=== PATIENT | female | born 1950 | race Caucasian/White ===

== ENCOUNTER → 2016-08-03 | Outpatient (CLI) | payer OTHER ==
[2015-06-30 00:03] VITALS: BP 122/65
[~2016-08-03] MED LIST: AMOX1TAB11 PO; ASPI81TA2 PO; ATOR10TA60 PO; CALC-112 PO; CETI10CA PO; CHOL20004 PO; CITA20TA5 PO; FURO40TA4 PO; IBUP-1060 PO; IPRA4AER; LEVO100T5 PO; LEVO88CA PO; LOSA50TA6 PO; METO-269 PO; METO100T5 PO; MOME13HF IH; MOME13HF2; PNV91TAB3 PO; POT25TAB PO; PRAM0.125 PO; TIZA4TAB PO; TOPI200C PO; TOPI50CA PO; UBID100C12 PO
--- NOTE | 2016-08-03 17:01 | CARD ---
APPROVED REPORT EXAM: Two-dimensional and M-mode echocardiogram with Doppler and color Doppler. Other Information Quality : Good INDICATION Chest Pain 2D DIMENSIONS RVDd2.5 (2.9-3.5cm)Left Atrium(2D)3.5 (1.6-4.0cm) IVSd1.0 (0.7-1.1cm)LVDd5.4 (3.9-5.9cm) LVOT Diameter2.4 (1.8-2.4cm)PWd0.9 (0.7-1.1cm) LVDs4.0 (2.5-4.0cm)FS (%) 26.8 % SV73.2 mlLVEF(%)51.8 (>50%) Aortic Valve AoV Peak Harlan.163.2cm/sAoV VTI32.6cm AO Peak GR.10.6mmHgLVOT Peak Harlan.84.6cm/s LVOT VTI 17.42cmAO Mean GR.6mmHg NORAH (VMAX)2.67si5BWT (VTI)2.47cm2 Mitral Valve MV E Ikjyqaqj73.0cm/sMV DECEL QHGH129hs MV A Ouedoeyo71.7cm/sMV HUW78dw E/A Ratio0.7MVA (PHT)2.86cm2 TDI E/Lateral E'8.6E/Medial E'10.7 Tricuspid Valve TR P. Jeedpzvb066fw/sRAP VFESOCKE4acKt TR Peak Gr.79ocYgFPSE53izPg Pulmonary Vein S1 Xovwnats10.2cm/sD2 Dutifuia71.9cm/s PVa [id number] LEFT VENTRICLE The left ventricle is normal size. There is normal left ventricular wall thickness. Left ventricle sy stolic function is low normal. The Ejection Fraction is 50-55%. There is normal LV segmental wall mot ion. Transmitral Doppler flow pattern is Grade I-abnormal relaxation pattern. RIGHT VENTRICLE The right ventricle is normal size. The right ventricular systolic function is normal. ATRIA The left atrium size is normal. The right atrium size is normal. The interatrial septum is intact wit h no evidence for an atrial septal defect or patent foramen ovale as noted on 2-D or Doppler imaging. AORTIC VALVE The aortic valve is mildly thickened but opens well. Doppler and Color Flow revealed no significant a ortic regurgitation. There is no significant aortic valvular stenosis. MITRAL VALVE The mitral valve is calcified but opens well. There is no evidence of mitral valve prolapse. There is no mitral valve stenosis. Doppler and Color-flow revealed trace mitral regurgitation. TRICUSPID VALVE The tricuspid valve is normal in structure and function. Doppler and Color Flow revealed trace tricus pid regurgitation. There is mild pulmonary hypertension. The PA pressure was estimated at 23 mmHg. Th ere is no tricuspid valve stenosis. PULMONIC VALVE The pulmonary valve is normal in structure and function. Doppler and Color Flow revealed mild pulmoni c valvular regurgitation. There is no pulmonic valvular stenosis. GREAT VESSELS The aortic root is normal in size. The ascending aorta is not well seen. The IVC is normal in size an d collapses >50% with inspiration. PERICARDIAL EFFUSION There is no evidence of significant pericardial effusion. Critical Notification Critical Value: No <Conclusion> Left ventricle systolic function is low normal. The Ejection Fraction is 50-55%. Transmitral Doppler flow pattern is Grade I-abnormal relaxation pattern. Trace mitral regurgitation. Trace tricuspid regurgitation. There is mild pulmonary hypertension. The PA pressure was estimated at 23 mmHg. There is no evidence of significant pericardial effusion.
== END | disposition home or self-care (01) ==
LOC: ECHO 07:57
PROVIDERS: ATTEND Internal Medicine Cardiovascular Disease
DX: R07.9 Chest pain, unspecified (principal); I27.2 Other secondary pulmonary hypertension; I34.0 Nonrheumatic mitral (valve) insufficiency
CPT/HCPCS: 93306

== ENCOUNTER 2017-01-06 02:24 | Observation (INO) | payer OTHER, MEDICARE ==
[~2017-01-06] VITALS: Ht 165.1 cm; Wt 86.6 kg
[~2017-01-06 02:24] MED LIST changes: +ASPI-630 PO; -ASPI81TA2 PO; -CHOL20004 PO; +CHOL200074 PO; -UBID100C12 PO; +UBID100C40 PO
[2017-01-06 02:56] LABS: BASO % 1 % (0-3); EOS % 3 % (0-3); HEMATOCRIT 40.6 % (36.0-47.0); HEMOGLOBIN 13.2 g/dL (12.0-15.5); LYMPH # 2.2 x10^3/uL (1.0-4.8); LYMPH % 24 % (24-48); MEAN CORPUSCULAR HEMOGLOBIN 29 pg (25-35); MEAN CORPUSCULAR HGB CONC 33 g/dL (31-37); MEAN CORPUSCULAR VOLUME 90 fL (79-100); MONO % 9 % (0-9); NEUT % 63 % (31-73); PLATELET COUNT 293 x10^3/uL (140-400); RED CELL DISTRIBUTION WIDTH 13.7 % (11.5-14.5)
[2017-01-06] MEDS ORDERED: IV NORMAL SALINE 1000ML BAG 1,000 ML IV ONE (03:00)
[2017-01-06 03:12] LABS: CALCIUM 8.2 mg/dL (8.5-10.1); CREATININE 0.6 mg/dL (0.6-1.0); GFR 100.6
[2017-01-06] MEDS ORDERED: ONDANSETRON PF 4 MG/2 ML VIAL. IV ONE (03:15)
[2017-01-06 03:18] LABS: ALBUMIN 3.3 g/dL (3.4-5.0); TOTAL BILIRUBIN 0.2 mg/dL (0.2-1.0); TOTAL PROTEIN 6.6 g/dL (6.4-8.2)
[2017-01-06] MEDS ORDERED: MORPHINE SULFATE 2 MG/ML DISP.SYRIN. IV PRN (04:00)
[2017-01-06] MEDS ORDERED: NITROGLYCERIN SUBLINGUAL 0.4 MG BOTTLE OF 25. SL PRN (04:00)
[2017-01-06] MEDS ORDERED: ACETAMINOPHEN 325 MG TABLET. PO PRN (04:00)
[2017-01-06] MEDS ORDERED: ONDANSETRON PF 4 MG/2 ML VIAL. IV PRN ×2 (04:00→08:13)
--- NOTE | 2017-01-06 04:31 | PHYS DOC ---
Past Medical History Past Medical History: Anxiety, COPD, Depression, Diverticulitis, High Cholesterol, Hypertension, [place] Past Surgical History: Hysterectomy, Tonsillectomy, Other Additional Past Surgical Histo: eye surgery, sinus Alcohol Use: None Drug Use: None Adult General Chief Complaint Chief Complaint: CHEST PAIN HPI HPI Patient is a 66 year old female who presents here today complaining of palpitations and feeling like her heart is racing. Patient was complaining of some chest discomfort as well too. Patient reports she has a history of coronary disease, hypertension, COPD, patient denies any history of diabetes or CHF. Patient has any abdominal surgeries. Patient does not smoke drink or do any drugs. Patient is not allergic to any medications. Patient has any fevers shakes chills nausea vomiting or diarrhea. Patient reports no dysuria frequency or urgency. Patient reports she's had a nonproductive cough. Patient reports that she was recently started on antibiotics and is on day 8 of Augmentin. Patient denies any radiating pain. Patient reports that she had some pressure in her chest prior to arrival. Patient's hospital stay she started developing more discomfort in her chest that resolved spontaneously. Patient's physical exam is unremarkable. Patient's heart was regular rate and rhythm. Lungs were clear. Abdomen was benign. Patient's heart rate has remained between 80-90 throughout her stay. Even the patient's heart rate is 80 patient reports that she is able to hear her pulse in her ears very rapidly. Patient reports that the reason she came in today was because her heart was rapid and she feels like it is currently rapidly. Even with the patient reports in the ED that her heart rate is rapid on the monitor it is only running between 80-90. Patient's ER hospital course has been on significant except for the chest pain that she developed what she was here. Patient's EKG revealed normal sinus rhythm with nonspecific ST-T wave abnormalities and no evidence of ST elevation [place]. Patient's labs were all within normal limits. Patient's chest x-ray and not reveal any pneumonia. Assessment and plan: This is a 66-year-old female with history significant for coronary artery disease presents here today secondary to palpitations, rapid heart rate, shortness of breath, chest pressure. Patient will be admitted to the hospital for further cardiac evaluation and monitoring. He anxious. Review of Systems Review of Systems Constitutional: Denies fever or chills [] Eyes: Denies change in visual acuity, redness, or eye pain [] HENT: Denies nasal congestion or sore throat [] All other review systems are negative except as documented in the history of present illness portion. Current Medications Current Medications Current Medications Medications (Trade) Dose Ordered Sig/Mo Start Time Stop Time Status Last Admin Dose Admin Acetaminophen (Tylenol) 650 mg PRN Q4HRS PRN 01/06/17 04:00 01/07/17 03:59 Lorazepam (Ativan) 1 mg 1X ONCE 01/06/17 03:15 01/06/17 03:16 DC 01/06/17 03:15 1 MG Morphine Sulfate 2 mg PRN Q2HR PRN 01/06/17 04:00 01/07/17 03:59 Nitroglycerin (Nitrostat) 0.4 mg PRN Q5MIN PRN 01/06/17 04:00 01/07/17 03:59 Ondansetron HCl (Zofran) 4 mg PRN Q8HRS PRN 01/06/17 04:00 01/07/17 03:59 Sodium Chloride 1,000 ml @ 1,000 mls/hr 1X ONCE 01/06/17 03:00 01/06/17 03:59 DC 01/06/17 03:15 1,000 MLS/HR Allergies Allergies Allergies Coded Allergies Type Severity Reaction Last Updated Verified codeine Allergy Intermediate Nausea 08/23/13 Yes theophylline Allergy Intermediate 08/05/16 Yes cephalexin Adverse Reaction Mild Diarrhea 08/05/16 Yes Physical Exam Physical Exam Constitutional: Well developed, well nourished, no acute distress, non-toxic appearance. [] HENT: Normocephalic, atraumatic, bilateral external ears normal, oropharynx moist, no oral exudates, nose normal. [] Eyes: PERRLA, EOMI, conjunctiva normal, no discharge. [] Neck: Normal range of motion, no tenderness, supple, no stridor. [] Cardiovascular:Heart rate regular rhythm, Lungs & Thorax: Bilateral breath sounds clear to auscultation [] Abdomen: Bowel sounds normal, soft, no tenderness, no masses, no pulsatile masses. [] Skin: Warm, dry, no erythema, no rash. [] Back: No tenderness, no CVA tenderness. [] Extremities: No tenderness, no cyanosis, no clubbing, ROM intact, no edema. [] Neurologic: Alert and oriented X 3, normal motor function, normal sensory function, no focal deficits noted. [] Psychologic: Affect normal, judgement normal, mood normal. [] Current Patient Data Vital Signs Vital Signs Date Time Temp Pulse Resp B/P (MAP) Pulse Ox O2 Delivery O2 Flow Rate FiO2 01/06/17 02:38 98.3 88 24 136/88 (104) 92 Room Air 98.3 Lab Values Laboratory Tests Test 01/06/17 02:35 White Blood Count 9.0 x10^3/uL (4.0-11.0) Red Blood Count 4.50 x10^6/uL (3.50-5.40) Hemoglobin 13.2 g/dL (12.0-15.5) Hematocrit 40.6 % (36.0-47.0) Mean Corpuscular Volume 90 fL (79-100) Mean Corpuscular Hemoglobin 29 pg (25-35) Mean Corpuscular Hemoglobin Concent 33 g/dL (31-37) Red Cell Distribution Width 13.7 % (11.5-14.5) Platelet Count 293 x10^3/uL (140-400) Neutrophils (%) (Auto) 63 % (31-73) Lymphocytes (%) (Auto) 24 % (24-48) Monocytes (%) (Auto) 9 % (0-9) Eosinophils (%) (Auto) 3 % (0-3) Basophils (%) (Auto) 1 % (0-3) Neutrophils # (Auto) 5.7 x10^3uL (1.8-7.7) Lymphocytes # (Auto) 2.2 x10^3/uL (1.0-4.8) Monocytes # (Auto) 0.9 x10^3/uL (0.0-1.1) Eosinophils # (Auto) 0.3 x10^3/uL (0.0-0.7) Basophils # (Auto) 0.0 x10^3/uL (0.0-0.2) Sodium Level 144 mmol/L (136-145) Potassium Level 4.0 mmol/L (3.5-5.1) Chloride Level 105 mmol/L (98-107) Carbon Dioxide Level 34 mmol/L (21-32) H Anion Gap 5 (6-14) L Blood Urea Nitrogen 15 mg/dL (7-20) Creatinine 0.6 mg/dL (0.6-1.0) Estimated GFR (Cockcroft-Gault) 100.6 BUN/Creatinine Ratio 25 (6-20) H Glucose Level 102 mg/dL (70-99) H Calcium Level 8.2 mg/dL (8.5-10.1) L Total Bilirubin 0.2 mg/dL (0.2-1.0) Aspartate Amino Transferase (AST) 14 U/L (15-37) L Alanine Aminotransferase (ALT) 20 U/L (14-59) Alkaline Phosphatase 71 U/L (46-116) Troponin I Quantitative < 0.017 ng/mL (0.000-0.055) Total Protein 6.6 g/dL (6.4-8.2) Albumin 3.3 g/dL (3.4-5.0) L Albumin/Globulin Ratio 1.0 (1.0-1.7) Laboratory Tests 01/06/17 02:35 Laboratory Tests 01/06/17 02:35 EKG EKG [] Radiology/Procedures Radiology/Procedures [] Course & Med Decision Making Course & Med Decision Making Pertinent Labs and Imaging studies reviewed. (See chart for details) [] Dragon Disclaimer Dragon Disclaimer This electronic medical record was generated, in whole or in part, using a voice recognition dictation system. Departure Departure Impression: Primary Impression: Chest pain Additional Impression: Palpitations Disposition: 09 ADMITTED INPATIENT Admitting Physician: Emily Edwards Condition: IMPROVED Referrals: JERROD DAMIAN MD (PCP) Problem Qualifiers JAMIL GARCÍA MD Jan 06, 2017 04:31
--- NOTE | 2017-01-06 05:35 | ACF ---
Admission Forms Criteria CARDIOLOGY GRG Clinical Indications for Admission to Inpatient Care ( Place 'X' for any and all applicable criteria): Hospital admission is needed for appropriate care of the patient because of ANY ONE of the following (1): [ ] I. Hemodynamic instability as indicated by ALL of the following (1)(2)(3) (4)(5) [ ]a) Vital signs or other findings not as expected for chronic patient condition or baseline [ ]b) Instability indicated by ANY ONE of the following: [ ]i) Hypotension [ ]ii) Symptomatic Tachycardia unresponsive to treatment ( e.g., analgesia, fluids, sedation as indicated) [ ]iii) Inadequate perfusion indicated by ANY ONE of the following: [ ] 1) Lactic acidosis (> 2 mmol/L) [ ] 2) New abnormal capillary refill (> 3 seconds) [ ] 3) Reduced urine output [ ] 4) New altered mental status [ ]iv) Orthostatic vital sign changes unresponsive to treatment (e.g., fluids) [ ]v) IV inotropic or vasopressor medication required to maintain adequate blood pressure or perfusion [ ] II. Severe heart failure as indicated by ANY ONE of the following(17)(18) [ ]a) Respiratory distress [ ]b) Hypotension [ ]c) Anasarca (refractory to outpatient therapy) [ ]d) Cardiac arrhythmias of immediate concern [ ]e) Myocardial ischemia [ ] III. Cardiac arrhythmias or findings of immediate concern indicated by ANY ONE of the following (19)(20): [ ] a) Heart rhythms that are inherently dangerous or unstable indicated by ANY ONE of the following (21)(22)(23): [ ] i) Resuscitated ventricular fibrillation or cardiac arrest [ ] ii) Ventricular escape rhythm [ ] iii) Sustained ventricular tachycardia (30 seconds or more of ventricular rhythm at greater than 100 beats per minute) [ ] iv) Nonsustained ventricular tachycardia and ANY ONE of the following: [ ] 1) Suspected cardiac ischemia as cause or consequence of ventricular tachycardia [ ] 2) In setting of acute myocarditis [ ] b) Unstable cardiac conduction defects indicated by ANY ONE of the following(23)(24)(25) [ ] i) Type II second-degree atrioventricular block [ ]ii) Third-degree atrioventricular block [ ]iii) New-onset left bundle branch block with suspected myocardial ischemia [ ]c) Any heart rhythm and ANY ONE of the following (21)(22)(26)(27) (28) [ ] i) Continuous long-term ECG monitoring needed (e.g., initiation of drug requiring monitoring for more than 24 hours) [ ] ii) Patient has automatic implanted cardioverter defibrillator that is repeatedly firing, malfunctioning, or in need of immediate adjustment of settings beyond the scope of ambulatory or observation care [ ]d) Heart rhythms of concern due to ANY ONE of the following: [ ] i) Hypotension [ ] ii) Respiratory distress [ ] iii) Association with other significant symptoms (e.g., bradycardia with syncope or ongoing dizziness, supraventricular tachycardia with chest pain (14)(15)(17) [ ] IV. Monitoring for cardiac contusion beyond the scope of observation care needed [A](30)(31)(32) [ ] V. Surgical or device complication (e.g., valve replacement complication , pacemaker dysfunction) (35)(41)(44)(45)(46) [ ] . Inpatient palliative care needed. [B](49) Also use Inpatient Palliative Care Criteria [ ] VII. Nonbacterial thrombotic (marantic) endocarditis (36)(43)(47)(48) [X] VIII. Cardiology condition, symptom, or finding for which emergency and observation care has failed or are not considered appropriate. [ ] IX. Acute valvular disease requiring inpatient as indicated by ANY ONE of the following (41) [ ]a) Acute valvular regurgitation (42) [ ]b) Noninfectious valvulitis (43) [ ]c) Obstructive valve thrombosis [ ]d) Paravalvular leak [ ]e) Other significant valvular disorder remaining after emergency or observation level of care (as appropriate) [ ]X. Pericardial disease requiring inpatient treatment as indicated by ANY ONE of the following (33)(34)(35)(36)(37) [ ]a) Suspected tamponade (38)(39)(40) [ ]b) Hemopericardium [ ]c) Other significant pericardial disorder remaining after emergency or observation level of care (as appropriate) [ ] XI. Cardiac ischemia beyond scope of emergency and observation care. [ ] XII. Hypertension requiring inpatient treatment as indicated by ANY ONE of the following (6)(7)(8) [ ]a) SBP greater than 220 mm Hg or DBP greater than 120 mmHg despite treatment [ ]b) SBP greater than 140 mm Hg or DBP greater than 100 mm Hg with evidence of acute end organ damage as indicated by ANY ONE of the following [ ] i) Encephalopathy [ ] ii) Acute renal failure as indicated by new onset of ANY ONE of the following (9)(10)(11)(12)(13) [ ]1) 3-fold rise in serum creatinine from baseline [ ]2) Serum creatinine greater than 4 mg/dL ( 354 micromoles/L) with acute rise greater than 0.5 mg/dL (44.2 micromoles/L) [ ]3) Reduction of more than 75% in estimated glomerular filtration rate from baseline [ ]4) Estimated glomerular filtration rate less than 35 mL/min/1.73m2 (0.59 mL/sec/1.73m2) in child up to 18 years of age [ ]5) Cessation of urine output indicated by ALL of the following [ ]A. Adequate volume status [ ]B. Inadequate urine output as indicated by ANY ONE of the following [ ]a. Urine output less than 0.3 mL/kg/hr for 24 hours [ ]b. Anuria (urine output less than 0.1 mL/kg/hr) for 12 hours [ ] iii) Aortic dissection [ ] iv) Myocardial Ischemia [ ] v) Left ventricular heart failure [ ]vi) Retinal Hemorrhage [ ]vii) Other significant finding [ ]c) Hypertension in child requiring inpatient treatment as indicated by ALL of the following(14)(15)(16) [ ] i) Outpatient treatment not effective, not available, or not appropriate [ ]ii) SBP or DBP greater than 95th percentile for age [ ]iii) Evidence of acute end organ damage as indicated by ANY ONE of the following [ ]1) Altered mental status [ ]2) Acute renal failure as indicated by new onset of ANY ONE of the following(9)(10)(11)(12)(13) [ ]A. 3-fold rise in serum creatinine from baseline [ ]B. Serum creatinine greater than 4 mg/dL (354 micromoles/L) with acute rise greater than 0.5 mg/dL (44.2 micromoles/L) [ ]C. Reduction of more than 75% in estimated glomerular filtration rate from baseline [ ]D. Estimated glomerular filtration rate less than 35 mL/min/1.73m2 (0.59 mL/sec/1.73m2) in child up to 18 years of age [ ]E. Cessation of urine output indicated by ALL of the following [ ]a. Adequate volume status [ ]b. Inadequate urine output as indicated by ANY ONE of the following [ ]i) Urine output less than 0.3 mL/kg/hr for 24 hours [ ]ii) Anuria ( urine output less than 0.1 mL/kg/hr) for 12 hours [ ]3) Severe headache [ ]4) Visual disturbance [ ]5) Retinal hemorrhage [ ]6) Other significant finding [ ]XIII. Complications of transplanted heart indicated by ANY ONE of the following(61): [ ]a) Acute graft rejection requiring inpatient management (eg, intravenous immunosuppression)(62)(63) [ ]b) Acute graft heart failure indicated by ANY ONE of the following(64): [ ]i) Hemodynamic instability [ ]ii) Cardiac arrhythmias of immediate concern [ ]iii) Pulmonary edema that is very severe (eg, mechanical ventilation needed, imminent or likely, need for 100% oxygen to keep oxygen saturation above 90%) [ ]iv) Pulmonary edema that is persistent as indicated by ALL of the following: [ ]1) New need for oxygen therapy to keep oxygen saturation above 90% (or increased FiO2 need from baseline) [ ]2) Has not improved sufficiently with emergency department or observation care IV diuretics or other heart failure treatments[E] [ ]v) Altered mental status that is severe or persistent [ ]vi) Increased creatinine (new on laboratory test) with reduction of more than 50% in estimated glomerular filtration rate from baseline [ ]vii) Progressively (ongoing) rising creatinine (known from past laboratory test) with reduction of more than 25% in estimated glomerular filtration rate from baseline [ ]viii) Acute renal failure [ ]ix) Acute peripheral ischemia (eg, examination shows pulseless, cool, mottled, or cyanotic extremity) [ ]x) Pulmonary artery catheter monitoring needed [ ]xi) Other sign or symptom of heart failure requiring inpatient treatment (ie, too severe or not responsive to outpatient and observation care treatment) [ ]c) Infection requiring inpatient management (eg, Hemodynamic instability, need for intravenous antimicrobial treatment)(66)(67)(68)(69)(70) [ ]d) Cardiac allograft vasculopathy requiring inpatient management ( eg evidence of cardiac ischemia)(71) [ ]e) Other complication of transplanted heart (eg, stroke, severe pulmonary hypertension, severe valvular dysfunction) requiring inpatient management(72) The original [facility] content created by [facility] has been revised. The portions of the content which have been revised are identified through the use of italic text or in bold, and [facility] has neither reviewed nor approved the modified material. All other unmodified content is copyright [facility]. Please see references footnoted in the original [facility] edition 2016 Admission Criteria Met?: Yes DIA BASHIR Jan 06, 2017 05:34
--- NOTE | 2017-01-06 07:15 | RAD ---
Portable chest, 01/06/2017: History: Chest pain Comparison is made to a study from 11/19/2014. The left hemidiaphragm is elevated. The heart is mildly enlarged. The pulmonary vascularity is normal. No pulmonary infiltrates are seen. There is no evidence of pleural fluid. IMPRESSION: 1. Chronic elevation of the left hemidiaphragm. 2. Mild cardiomegaly. 3. No acute abnormality is detected.
[2017-01-06 07:38] VITALS: BP 133/62
[2017-01-06] MEDS ORDERED: tiZANidine 4 MG TABLET. PO PRN (08:15)
[2017-01-06] MEDS ORDERED: IBUPROFEN 800 MG TABLET. PO PRN (08:30)
[2017-01-06] MEDS: IPRATRPIUM/ALBUTEROL 0.5/2.5MG 3 ML NEBU. NEB SCH ×3 (08:33→15:20)
[2017-01-06] MEDS ORDERED: FUROSEMIDE 40 MG TABLET. PO SCH (09:00)
[2017-01-06] MEDS ORDERED: POTASSIUM CHLORIDE 20 MEQ TABLET.ER. PO SCH (09:00)
[2017-01-06] MEDS ORDERED: LOSARTAN POTASSIUM 50 MG TABLET. PO SCH (09:00)
[2017-01-06] MEDS ORDERED: METOPROLOL SUCC 24HR ER 100 MG TAB.ER.24H. PO SCH (09:00)
[2017-01-06] MEDS: PRAMIPEXOLE 0.25 MG TABLET. PO SCH ×2 (09:00→11:23)
[2017-01-06] MEDS ORDERED: BUDESONIDE 0.5 MG/2 ML NEBU. NEB SCH (09:00)
[2017-01-06] MEDS ORDERED: CHOLECALCIFEROL (VITAMIN D3) 1,000 UNIT TABLET PO SCH (09:00)
[2017-01-06] MEDS ORDERED: ASPIRIN CHEWABLE 81 MG TABLET. PO SCH (09:00)
[2017-01-06] MEDS ORDERED: UBIDECARENONE PO SCH (09:00)
[2017-01-06] MEDS ORDERED: TOPIRAMATE 200 MG PO SCH (09:00)
[2017-01-06] MEDS ORDERED: CETIRIZINE HCL 10 MG TABLET. PO SCH (09:00)
[2017-01-06] MEDS ORDERED: LEVOTHYROXINE 100 MCG TABLET PO SCH (09:00)
--- NOTE | 2017-01-06 09:55 | PDOC2 ---
CARDIAC CONSULT DATE OF CONSULT Date of Consult DATE: 01/06/17 TIME: 09:32 REASON FOR CONSULT Reason for Consult: Chest pain REFERRING PHYSICIAN Referring Physician: Wilder SOURCE Source: Chart review, Patient HISTORY OF PRESENT ILLNESS HISTORY OF PRESENT ILLNESS This is a pleasant 66 yo female admitted for complains of palpitations. Reports of left chest pain on Wednesday followed by stomach ache and nausea. No SOA but uses O2 at 2.5 LPM at hs for her COPD. A week ago he developed symptoms of URI in which she was given medrol dose pack. She took this and Wednesday. Also she was recommended for some antibiotics and her having left over augmentin she started taking this and took it for 6 days total with her last dose Wednesday. Wednesday night in addition to her symptoms mentioned she started having sensation of heart racing and developed diarrhea. This was watery continued on 5 episodes through Wednesday. No further recurrence of CP. Wednesday no further GI symptoms and remains to have sensation of palpitations and slight nausea. She does admit anxiety in which she was prescribed lexapro last but never got started due to her symptoms. She does take levothyroxine but has not taken it since Wednesday but continued on to take her cardiac meds including toprol. This sensation of palpitations happened again last night but the tele monitor did not show any tachyarrhythmias. She has been having insomnia as well since her steroid started She also has been exercising without difficulty with treadmill and rehab prior to her URI. No excessive caffeinated na use. PAST MEDICAL HISTORY Cardiovascular: CAD, HTN, Hyperlipidemia, Other (tachycardia in the past, unknown type; NICM) Pulmonary: COPD CENTRAL NERVOUS SYSTEM: Other (No pertinent history) Heme/Onc: No pertinent hx Hepatobiliary: No pertinent hx Psych: Anxiety Musculoskeletal: low back pain, Osteoarthritis Rheumatologic: No pertinent hx Infectious disease: No pertinent hx ENT: Sincusitis, Allergic Rhinitis Renal/: No pertinent hx Endocrine: Hypothyroidism Dermatology: No pertinent hx PAST SURGICAL HISTORY Past Surgical History: Tonsillectomy, Hysterectomy FAMILY HISTORY Family History: Diabetes SOCIAL HISTORY Smoke: No (90 pk yr quit 16 yrs ago) ALCOHOL: none Drugs: None Lives: with Family CURRENT MEDICATIONS CURRENT MEDICATIONS Current Medications Medications (Trade) Dose Ordered Sig/Mo Route PRN Reason Start Time Stop Time Status Last Admin Dose Admin Sodium Chloride 1,000 ml @ 1,000 mls/hr 1X ONCE IV 01/06/17 03:00 01/06/17 03:59 DC 01/06/17 03:15 Ondansetron HCl (Zofran) 4 mg 1X ONCE IV 01/06/17 03:15 01/06/17 03:16 DC 01/06/17 03:15 Lorazepam (Ativan) 1 mg 1X ONCE IV 01/06/17 03:15 01/06/17 03:16 DC 01/06/17 03:15 Budesonide (Pulmicort) 0.5 mg RTBID NEB 01/06/17 09:00 01/06/17 08:34 Albuterol/ Ipratropium (Duoneb) 3 ml RTQID [facility] 01/06/17 09:00 01/06/17 08:33 ALLERGIES ALLERGIES: Coded Allergies: codeine (Verified Allergy, Intermediate, Nausea, 08/23/13) theophylline (Verified Allergy, Intermediate, 08/05/16) cephalexin (Verified Adverse Reaction, Mild, Diarrhea, 08/05/16) ROS Review of System 14 point ROS evaluated with pertinent positives noted per HPI PHYSICAL EXAM General: Alert, Oriented X3, Cooperative, No acute distress HEENT: Atraumatic, Mucous membr. moist/pink Lungs: Clear to auscultation Heart: Regular rate (SR), Normal S1, Normal S2, No murmurs Abdomen: Soft, No tenderness Extremities: No cyanosis, No edema Skin: No breakdown, No significant lesion Neuro: Normal speech, Sensation intact Psych/Mental Status: Mental status NL, Other (anxious) MUSCULOSKELETAL: Osteoarthritic changes both hands VITALS VITALS Vital Signs Date Time Temp Pulse Resp B/P (MAP) Pulse Ox O2 Delivery O2 Flow Rate FiO2 01/06/17 08:34 99 Nasal Cannula 2.0 01/06/17 06:30 86 153/74 (100) 01/06/17 05:00 18 01/06/17 02:38 98.3 98.3 LABS Lab: Laboratory Tests Test 01/06/17 02:35 White Blood Count 9.0 x10^3/uL (4.0-11.0) Red Blood Count 4.50 x10^6/uL (3.50-5.40) Hemoglobin 13.2 g/dL (12.0-15.5) Hematocrit 40.6 % (36.0-47.0) Mean Corpuscular Volume 90 fL (79-100) Mean Corpuscular Hemoglobin 29 pg (25-35) Mean Corpuscular Hemoglobin Concent 33 g/dL (31-37) Red Cell Distribution Width 13.7 % (11.5-14.5) Platelet Count 293 x10^3/uL (140-400) Neutrophils (%) (Auto) 63 % (31-73) Lymphocytes (%) (Auto) 24 % (24-48) Monocytes (%) (Auto) 9 % (0-9) Eosinophils (%) (Auto) 3 % (0-3) Basophils (%) (Auto) 1 % (0-3) Neutrophils # (Auto) 5.7 x10^3uL (1.8-7.7) Lymphocytes # (Auto) 2.2 x10^3/uL (1.0-4.8) Monocytes # (Auto) 0.9 x10^3/uL (0.0-1.1) Eosinophils # (Auto) 0.3 x10^3/uL (0.0-0.7) Basophils # (Auto) 0.0 x10^3/uL (0.0-0.2) Sodium Level 144 mmol/L (136-145) Potassium Level 4.0 mmol/L (3.5-5.1) Chloride Level 105 mmol/L (98-107) Carbon Dioxide Level 34 mmol/L (21-32) Anion Gap 5 (6-14) Blood Urea Nitrogen 15 mg/dL (7-20) Creatinine 0.6 mg/dL (0.6-1.0) Estimated GFR (Cockcroft-Gault) 100.6 BUN/Creatinine Ratio 25 (6-20) Glucose Level 102 mg/dL (70-99) Calcium Level 8.2 mg/dL (8.5-10.1) Total Bilirubin 0.2 mg/dL (0.2-1.0) Aspartate Amino Transf (AST/SGOT) 14 U/L (15-37) Alanine Aminotransferase (ALT/SGPT) 20 U/L (14-59) Alkaline Phosphatase 71 U/L (46-116) Troponin I Quantitative < 0.017 ng/mL (0.000-0.055) Total Protein 6.6 g/dL (6.4-8.2) Albumin 3.3 g/dL (3.4-5.0) Albumin/Globulin Ratio 1.0 (1.0-1.7) ECHOCARDIOGRAM ECHOCARDIOGRAM <Conclusion> Left ventricle systolic function is low normal. The Ejection Fraction is 50-55%. Transmitral Doppler flow pattern is Grade I-abnormal relaxation pattern. Trace mitral regurgitation. Trace tricuspid regurgitation. There is mild pulmonary hypertension. The PA pressure was estimated at 23 mmHg. There is no evidence of significant pericardial effusion. DATE: 08/03/16 1700 STRESS TEST STRESS TEST Conclusion 1. No EKG evidence of stress induced ischemia. 2. Nuclear imaging shows an infarct in the apical lateral region and no significant reversible ischemia. 3. LV systolic moderately decreased with an EF of 36%. 4. Moderately low risk nuclear stress test. DATE: 07/06/16 1343 HEART CATH HEART CATH Findings. Hemodynamics. LV 132/18, aortic root 140/68. Coronaries. Left main. The left main was a short vessel with no lesions. Left anterior descending. The LAD was a moderately small vessel. It had no lesions. Left circumflex. The left circumflex had a proximal 15% lesion. Right coronary artery. The right coronary was a dominant vessel. It had a mid 25 % lesion. Left ventriculogram. The left ventricle showed normal left ventricular systolic function with an ejection fraction of 55%. <Conclusion> Mild coronary artery disease with no lesions greater than 25%. Normal left ventricular systolic function. DATE: 08/05/16 1426 ASSESSMENT/PLAN ASSESSMENT/PLAN 1. Atypical chest pain: No ACS. likely anxiety. Lone episode of brief CP Wednesday 2. Palpitations: mainly her complaint. Likely from anxiety particularly the addition of steroids. 3. Anxiety: has not started her new prescription escitalopram but was on prozac before 4. Hx of some form of tachycardia?: unknown per pt. 5. Hx of mild CAD: 25% to mid RCA per C. 6. NICM: much improved with EF at 50-55% Recommendations 1. Ischemic w/u very recent as noted above. Will consider for outpt event monitor. 2. Continue home cardiac regimen 3. SSRI per PCP. 4. Check TSH 5. If no significant rhythm changes then may DC this afternoon per cardiac standpoint. 6. Will obtain EKG copy. Problems: BRITANY BHATIA APRN Jan 06, 2017 09:55
[2017-01-06 10:54] VITALS: BP 101/57
[2017-01-06 11:37] LABS: FREE T4 0.92 ng/dL (0.76-1.46)
--- NOTE | 2017-01-06 12:48 | PDOC1 ---
History and Physical Date of Admission Date of Admission DATE: 01/06/17 TIME: 12:37 Identification/Chief Complaint Chief Complaint palpitations Problems: Source Source: Caregiver, Chart review, Patient History of Present Illness History of Present Illness Pleasant 66 y.o female, admitted for palpitations she can hear on R side of her head. HR 100 bpm at rest, no BOV, headaches, ringing of ears. New onset, no other sxs. On metoprolol 100 ER qD. also on synthroid, PCP dr. Soares, has been on that dose for long time,. Claims compliance. CArds has seen, no further work up,. BUt HR remains at 100 bpm with sxs still persistent. No excessive caffeinated na use. Past Medical History Cardiovascular: CAD, HTN, Hyperlipidemia, Other (tachycardia in the past, unknown type; NICM) Pulmonary: COPD CENTRAL NERVOUS SYSTEM: Other (No pertinent history) Heme/Onc: No pertinent hx Hepatobiliary: No pertinent hx Psych: Anxiety Musculoskeletal: low back pain, Osteoarthritis Rheumatologic: No pertinent hx Infectious disease: No pertinent hx ENT: Sincusitis, Allergic Rhinitis Renal/: No pertinent hx Endocrine: Hypothyroidism Dermatology: No pertinent hx Past Surgical History Past Surgical History: Tonsillectomy, Hysterectomy Family History Family History: Diabetes Social History Smoke: No (90 pk yr quit 16 yrs ago) ALCOHOL: none Drugs: None Current Problem List Problem List Problems Medical Problems: (1) Chest pain Status: Acute (2) Palpitations Status: Acute Problems: Current Medications Current Medications Current Medications Sodium Chloride 1,000 ml @ 1,000 mls/hr 1X ONCE IV Last administered on 03:15; Start 01/06/17 at 03:00; Stop 01/06/17 at 03:59; Status DC Ondansetron HCl (Zofran) 4 mg 1X ONCE IV Last administered on 01/06/17 03:15 ; Start 01/06/17 at 03:15; Stop 01/06/17 at 03:16; Status DC Lorazepam (Ativan) 1 mg 1X ONCE IV Last administered on 01/06/17 03:15; Start 01/06/17 at 03:15; Stop 01/06/17 at 03:16; Status DC Ondansetron HCl (Zofran) 4 mg PRN Q8HRS PRN IV NAUSEA/VOMITING; Start 01/06/17 at 04:00; Stop 01/06/17 at 08:15; Status DC Morphine Sulfate 2 mg PRN Q2HR PRN IV PAIN; Start 01/06/17 at 04:00; Stop 01/07 at 03:59 Acetaminophen (Tylenol) 650 mg PRN Q4HRS PRN PO FEVER; Start 01/06/17 at 04:00 ; Stop 01/07/17 at 03:59 Nitroglycerin (Nitrostat) 0.4 mg PRN Q5MIN PRN SL CHEST PAIN; Start 01/06/17 at 04:00; Stop 01/07/17 at 03:59 Ondansetron HCl (Zofran) 4 mg PRN Q6HRS PRN IV NAUSEA/VOMITING; Start 01/06/17 at 08:13; Stop 01/07/17 at 08:12 Aspirin (Children'S Aspirin) 81 mg DAILY PO Last administered on 01/06/17 11: 23; Start 01/06/17 at 09:00 Atorvastatin Calcium (Lipitor) 10 mg QHS PO ; Start 01/06/17 at 21:00 Furosemide (Lasix) 40 mg DAILY PO Last administered on 01/06/17 11:24; Start 01/06/17 at 09:00 Levothyroxine Sodium (Synthroid) 100 mcg DAILY06 PO Last administered on 11:23; Start 01/06/17 at 09:00; Stop 01/06/17 at 12:31; Status DC Losartan Potassium (Cozaar) 50 mg DAILY PO Last administered on 01/06/17 11:23 ; Start 01/06/17 at 09:00 Metoprolol Succinate (Toprol Xl) 100 mg DAILY PO Last administered on 11:24; Start 01/06/17 at 09:00 Tizanidine HCl (Zanaflex) 4 mg PRN QID PRN PO MUSCLE SPASMS; Start 01/06/17 at 08:15 Cetirizine HCl (ZyrTEC) 10 mg DAILY PO Last administered on 01/06/17 11:23; Start 01/06/17 at 09:00 Vitamin D (Vitamin D3) 2,000 unit DAILY PO Last administered on 01/06/17 11:24 ; Start 01/06/17 at 09:00 Ibuprofen (Motrin) 800 mg PRN Q6HRS PRN PO INFLAMMATION; Start 01/06/17 at 08: 30 Budesonide (Pulmicort) 0.5 mg RTBID NEB Last administered on 01/06/17 08:34; Start 01/06/17 at 09:00 Potassium Chloride (Klor-Con) 20 meq DAILYWBKFT PO Last administered on 11:24; Start 01/06/17 at 09:00 Pramipexole Dihydrochloride (miraPEX) 0.125 mg DAILY PO ; Start 01/06/17 at 09: 00 Non-Formulary Medication 200 mg DAILY PO ; Start 01/06/17 at 09:00; Status UNV Non-Formulary Medication 1 tab DAILY PO ; Start 01/06/17 at 09:00; Status UNV Albuterol/ Ipratropium (Duoneb) 3 ml RTQID NEB Last administered on 01/06/17 11:19; Start 01/06/17 at 09:00 Multivit/ Folic Acid/Iron (Multivitamin ) 1 tab DAILY PO ; Start 01/07/17 at 09:00 Levothyroxine Sodium (Synthroid) 125 mcg DAILY07 PO ; Start 01/07/17 at 07:00 Active Scripts Active Reported Tizanidine Hcl 4 Mg Tablet 4 Mg PO QID PRN Levothyroxine Sodium 100 Mcg Tablet 1 Tab PO DAILY Ibuprofen 800 Mg Tablet 800 Mg PO PRN Q6HRS PRN Caplet (Pnv95/Ferrous Fumarate/FA) 1 Each Tablet 1 Each PO DAILY Atorvastatin Calcium 10 Mg Tablet 1 Tab PO DAILY Vitamin D-3 (Cholecalciferol (Vitamin D3)) 2,000 Unit Capsule 2,000 Unit PO DAILY Toprol Xl (Metoprolol Succinate) 100 Mg Tab.er.24h 1 Tab PO DAILY Dulera 200 Mcg/5 Mcg Inhaler (Mometasone/Formoterol) 13 Gm Hfa.aer.ad 2 Puff IH BID Combivent Respimat Inhal (Ipratropium/Albuterol Sulfate) 4 Gm Aer.w.adap Furosemide 40 Mg Tablet 1 Tab PO DAILY Co Q-10 (Ubidecarenone) 100 Mg Capsule 1 Tab PO DAILY Aspirin 81 Mg Tab.chew 1 Tab PO DAILY Potassium Cl 25 Meq Tab Eff (Pot Chloride/Pot Bicarb/Cit Ac) 25 Meq Tablet.eff 1 Tab PO DAILY Losartan Potassium 50 Mg Tablet 1 Tab PO DAILY Mirapex (Pramipexole Di-Hcl) 0.125 Mg Tablet 1 Tab PO DAILY Zyrtec (Cetirizine Hcl) 10 Mg Capsule 1 Tab PO DAILY Allergies Allergies: Coded Allergies: codeine (Verified Allergy, Intermediate, Nausea, 08/23/13) theophylline (Verified Allergy, Intermediate, 08/05/16) cephalexin (Verified Adverse Reaction, Mild, Diarrhea, 08/05/16) ROS General: YES: Malaise, Other (weak) PSYCHOLOGICAL ROS: No: Anxiety, Behavioral Disorder, Concentration difficultie , Decreased libido, Depression, Disorientation, Hallucinations, Hostility, Irritablity, Memory difficulties, Mood Swings, Obsessive thoughts, Physical abuse, Sexual abuse, Sleep disturbances, Suicidal ideation, Other Eyes: No Blurry vision, No Decreased vision, No Double vision, No Dry eyes, No Excessive tearing, No Eye Pain, No Itchy Eyes, No Loss of vision, No Photophobia , No Scotomata, No Uses contacts, No Uses glasses, No Other HEENT: YES: Other (hearing palpitations) ALLERGY AND IMMUNOLOGY: No: Hives, Insect Bite Sensitivity, Itchy/Watery Eyes, Nasal Congestion, Post Nasal Drip, Seasonal Allergies, Other Hematological and Lymphatic: No: Bleeding Problems, Blood Clots, Blood Transfusions, Brusing, Night Sweats, Pallor, Swollen Lymph Nodes, Other ENDOCRINE: No: Breast Changes, Galactorrhea, Hair Pattern Changes, Hot Flashes , Malaise/lethargy, Mood Swings, Palpitations, Polydipsia/polyuria, Skin Changes , Temperature Intolerance, Unexpected Weight Changes, Other Breast: No New/Changing Breast Lumps, No Nipple changes, No Nipple discharge, No Other Respiratory: No: Cough, Hemoptysis, Orthopnea, Pleuritic Pain, Shortness of breath, SOB with excertion, Sputum Changes, Stridor, Tachypnea, Wheezing, Other Cardiovascular: yes Palpitations Gastrointestinal: No Nausea, No Vomiting, No Abdominal Pain, No Diarrhea, No Constipation, No Melena, No Hematochezia, No Other Genitourinary: No Dysuria, No Frequency, No Incontinence, No Hematuria, No Retention, No Discharge, No Urgency, No Pain, No Flank Pain, No Other, No , No , No , No , No , No , No Musculoskeletal: No Gait Disturbance, No Joint Pain, No Joint Stiffness, No Joint Swelling, No Muscle Pain, No Muscular Weakness, No Pain In:, No Swelling In:, No Other Neurological: No Behavorial Changes, No Bowel/Bladder ControlChng, No Confusion , No Dizziness, No Gait Disturbance, No Headaches, No Impaired Coord/balance, No Memory Loss, No Numbness/Tingling, No Seizures, No Speech Problems, No Tremors, No Visual Changes, No Weakness, No Other Skin: No Dry Skin, No Eczema, No Hair Changes, No Lumps, No Mole Changes, No Mottling, No Nail Changes, No Pruritus, No Rash, No Skin Lesion Changes, No Other, No Acne Physical Exam General: Alert, Oriented X3, Cooperative, No acute distress HEENT: Atraumatic, PERRLA, EOMI Lungs: Clear to auscultation, Normal air movement Heart: S1S2, RRR, no thrills, no rubs, no gallops, no murmurs Cardiovascular: S1, S2 Breasts: Normal, Rt breast nml w/o mass, Lt breast nml w/o mass, Nipples normal Abdomen: Normal bowel sounds, Soft, No tenderness, No hepatosplenomegaly, No masses Rectal Exam: not examined Extremities: No clubbing, No cyanosis, No edema, Normal pulses, No tenderness/ swelling Skin: No rashes, No breakdown, No significant lesion Neuro: Normal gait, Normal speech, Strength at 5/5 X4 ext, Normal tone, Sensation intact, Cranial nerves 3-12 NL, Reflexes 2+ Psych/Mental Status: Mental status NL, Mood NL Vitals Vitals Vital Signs Date Time Temp Pulse Resp B/P (MAP) Pulse Ox O2 Delivery O2 Flow Rate FiO2 01/06/17 11:24 98 101/57 01/06/17 11:19 Nasal Cannula 2.0 01/06/17 10:54 97.7 20 96 97.7 Labs Labs Laboratory Tests Test 01/06/17 02:35 01/06/17 10:10 White Blood Count 9.0 x10^3/uL (4.0-11.0) Red Blood Count 4.50 x10^6/uL (3.50-5.40) Hemoglobin 13.2 g/dL (12.0-15.5) Hematocrit 40.6 % (36.0-47.0) Mean Corpuscular Volume 90 fL (79-100) Mean Corpuscular Hemoglobin 29 pg (25-35) Mean Corpuscular Hemoglobin Concent 33 g/dL (31-37) Red Cell Distribution Width 13.7 % (11.5-14.5) Platelet Count 293 x10^3/uL (140-400) Neutrophils (%) (Auto) 63 % (31-73) Lymphocytes (%) (Auto) 24 % (24-48) Monocytes (%) (Auto) 9 % (0-9) Eosinophils (%) (Auto) 3 % (0-3) Basophils (%) (Auto) 1 % (0-3) Neutrophils # (Auto) 5.7 x10^3uL (1.8-7.7) Lymphocytes # (Auto) 2.2 x10^3/uL (1.0-4.8) Monocytes # (Auto) 0.9 x10^3/uL (0.0-1.1) Eosinophils # (Auto) 0.3 x10^3/uL (0.0-0.7) Basophils # (Auto) 0.0 x10^3/uL (0.0-0.2) Sodium Level 144 mmol/L (136-145) Potassium Level 4.0 mmol/L (3.5-5.1) Chloride Level 105 mmol/L (98-107) Carbon Dioxide Level 34 mmol/L (21-32) Anion Gap 5 (6-14) Blood Urea Nitrogen 15 mg/dL (7-20) Creatinine 0.6 mg/dL (0.6-1.0) Estimated GFR (Cockcroft-Gault) 100.6 BUN/Creatinine Ratio 25 (6-20) Glucose Level 102 mg/dL (70-99) Calcium Level 8.2 mg/dL (8.5-10.1) Total Bilirubin 0.2 mg/dL (0.2-1.0) Aspartate Amino Transf (AST/SGOT) 14 U/L (15-37) Alanine Aminotransferase (ALT/SGPT) 20 U/L (14-59) Alkaline Phosphatase 71 U/L (46-116) Troponin I Quantitative < 0.017 ng/mL (0.000-0.055) < 0.017 ng/mL (0.000-0.055) Total Protein 6.6 g/dL (6.4-8.2) Albumin 3.3 g/dL (3.4-5.0) Albumin/Globulin Ratio 1.0 (1.0-1.7) Thyroid Stimulating Hormone (TSH) 3.992 uIU/mL (0.358-3.74) Free Thyroxine 0.92 ng/dL (0.76-1.46) Free Triiodothyronine (T3) pg/mL 1.70 pg/mL (2.18-3.98) Laboratory Tests Test 01/06/17 02:35 01/06/17 10:10 White Blood Count 9.0 x10^3/uL (4.0-11.0) Red Blood Count 4.50 x10^6/uL (3.50-5.40) Hemoglobin 13.2 g/dL (12.0-15.5) Hematocrit 40.6 % (36.0-47.0) Mean Corpuscular Volume 90 fL (79-100) Mean Corpuscular Hemoglobin 29 pg (25-35) Mean Corpuscular Hemoglobin Concent 33 g/dL (31-37) Red Cell Distribution Width 13.7 % (11.5-14.5) Platelet Count 293 x10^3/uL (140-400) Neutrophils (%) (Auto) 63 % (31-73) Lymphocytes (%) (Auto) 24 % (24-48) Monocytes (%) (Auto) 9 % (0-9) Eosinophils (%) (Auto) 3 % (0-3) Basophils (%) (Auto) 1 % (0-3) Neutrophils # (Auto) 5.7 x10^3uL (1.8-7.7) Lymphocytes # (Auto) 2.2 x10^3/uL (1.0-4.8) Monocytes # (Auto) 0.9 x10^3/uL (0.0-1.1) Eosinophils # (Auto) 0.3 x10^3/uL (0.0-0.7) Basophils # (Auto) 0.0 x10^3/uL (0.0-0.2) Sodium Level 144 mmol/L (136-145) Potassium Level 4.0 mmol/L (3.5-5.1) Chloride Level 105 mmol/L (98-107) Carbon Dioxide Level 34 mmol/L (21-32) Anion Gap 5 (6-14) Blood Urea Nitrogen 15 mg/dL (7-20) Creatinine 0.6 mg/dL (0.6-1.0) Estimated GFR (Cockcroft-Gault) 100.6 BUN/Creatinine Ratio 25 (6-20) Glucose Level 102 mg/dL (70-99) Calcium Level 8.2 mg/dL (8.5-10.1) Total Bilirubin 0.2 mg/dL (0.2-1.0) Aspartate Amino Transf (AST/SGOT) 14 U/L (15-37) Alanine Aminotransferase (ALT/SGPT) 20 U/L (14-59) Alkaline Phosphatase 71 U/L (46-116) Troponin I Quantitative < 0.017 ng/mL (0.000-0.055) < 0.017 ng/mL (0.000-0.055) Total Protein 6.6 g/dL (6.4-8.2) Albumin 3.3 g/dL (3.4-5.0) Albumin/Globulin Ratio 1.0 (1.0-1.7) Thyroid Stimulating Hormone (TSH) 3.992 uIU/mL (0.358-3.74) Free Thyroxine 0.92 ng/dL (0.76-1.46) Free Triiodothyronine (T3) pg/mL 1.70 pg/mL (2.18-3.98) VTE Prophylaxis Ordered VTE Prophylaxis Devices: Yes VTE Pharmacological Prophylaxi: Yes Assessment/Plan Assessment/Plan 1. PAlpitations 2. Hypothyrodism, TSH not at goal 3. Obesity, fibromyalgia, HTN - all chronci stable PLAN: I did order TSH and T3 T4 earlier today, TSH high and T4 slightly low Adjust dose inc to 125 mcg per day - but this will not explain the palpitations (she should be bradycardic if at all) ALready on metoprolol 100 ER MIght need to add another agent - as HR 100s laying down at rest and still symptomatic - consider clonidine or labetolol Will discuss with cards PLanend for OP event monitor too/loop recorder Dw pt and RN - start second agent SONALI LANDERS MD Jan 06, 2017 12:48
[2017-01-06] MEDS ORDERED: LABETALOL HCL 100 MG TABLET. PO SCH (13:30)
[2017-01-06] MEDS ORDERED: LEVO125T5 PO (15:11)
[2017-01-06 15:25] VITALS: BP 120/72
--- NOTE | 2017-01-06 15:31 | PDOC3 ---
Discharge Summary Visit Information Date of Admission: Jan 05, 2017 Date of Discharge: Jan 06, 2017 Admitting Diagnosis Comment: Palpitations HYpothyroidism TSH not at goal Fibromyalgia, HTN, borderline hypotension Final Diagnosis Problems Medical Problems: (1) Chest pain Status: Acute (2) Palpitations Status: Acute Brief Hospital Course Allergies Allergies Coded Allergies Type Severity Reaction Last Updated Verified codeine Allergy Intermediate Nausea 08/23/13 Yes theophylline Allergy Intermediate 08/05/16 Yes cephalexin Adverse Reaction Mild Diarrhea 08/05/16 Yes Vital Signs Vital Signs Date Time Temp Pulse Resp B/P (MAP) Pulse Ox O2 Delivery O2 Flow Rate FiO2 01/06/17 15:25 98.5 91 18 120/72 (88) 92 Room Air 98.5 01/06/17 11:19 2.0 Lab Results Laboratory Tests Test 01/06/17 02:35 01/06/17 10:10 White Blood Count 9.0 x10^3/uL (4.0-11.0) Red Blood Count 4.50 x10^6/uL (3.50-5.40) Hemoglobin 13.2 g/dL (12.0-15.5) Hematocrit 40.6 % (36.0-47.0) Mean Corpuscular Volume 90 fL (79-100) Mean Corpuscular Hemoglobin 29 pg (25-35) Mean Corpuscular Hemoglobin Concent 33 g/dL (31-37) Red Cell Distribution Width 13.7 % (11.5-14.5) Platelet Count 293 x10^3/uL (140-400) Neutrophils (%) (Auto) 63 % (31-73) Lymphocytes (%) (Auto) 24 % (24-48) Monocytes (%) (Auto) 9 % (0-9) Eosinophils (%) (Auto) 3 % (0-3) Basophils (%) (Auto) 1 % (0-3) Neutrophils # (Auto) 5.7 x10^3uL (1.8-7.7) Lymphocytes # (Auto) 2.2 x10^3/uL (1.0-4.8) Monocytes # (Auto) 0.9 x10^3/uL (0.0-1.1) Eosinophils # (Auto) 0.3 x10^3/uL (0.0-0.7) Basophils # (Auto) 0.0 x10^3/uL (0.0-0.2) Sodium Level 144 mmol/L (136-145) Potassium Level 4.0 mmol/L (3.5-5.1) Chloride Level 105 mmol/L (98-107) Carbon Dioxide Level 34 mmol/L (21-32) Anion Gap 5 (6-14) Blood Urea Nitrogen 15 mg/dL (7-20) Creatinine 0.6 mg/dL (0.6-1.0) Estimated GFR (Cockcroft-Gault) 100.6 BUN/Creatinine Ratio 25 (6-20) Glucose Level 102 mg/dL (70-99) Calcium Level 8.2 mg/dL (8.5-10.1) Total Bilirubin 0.2 mg/dL (0.2-1.0) Aspartate Amino Transf (AST/SGOT) 14 U/L (15-37) Alanine Aminotransferase (ALT/SGPT) 20 U/L (14-59) Alkaline Phosphatase 71 U/L (46-116) Troponin I Quantitative < 0.017 ng/mL (0.000-0.055) < 0.017 ng/mL (0.000-0.055) Total Protein 6.6 g/dL (6.4-8.2) Albumin 3.3 g/dL (3.4-5.0) Albumin/Globulin Ratio 1.0 (1.0-1.7) Thyroid Stimulating Hormone (TSH) 3.992 uIU/mL (0.358-3.74) Free Thyroxine 0.92 ng/dL (0.76-1.46) Free Triiodothyronine (T3) pg/mL 1.70 pg/mL (2.18-3.98) Laboratory Tests Test 01/06/17 02:35 01/06/17 10:10 White Blood Count 9.0 x10^3/uL (4.0-11.0) Red Blood Count 4.50 x10^6/uL (3.50-5.40) Hemoglobin 13.2 g/dL (12.0-15.5) Hematocrit 40.6 % (36.0-47.0) Mean Corpuscular Volume 90 fL (79-100) Mean Corpuscular Hemoglobin 29 pg (25-35) Mean Corpuscular Hemoglobin Concent 33 g/dL (31-37) Red Cell Distribution Width 13.7 % (11.5-14.5) Platelet Count 293 x10^3/uL (140-400) Neutrophils (%) (Auto) 63 % (31-73) Lymphocytes (%) (Auto) 24 % (24-48) Monocytes (%) (Auto) 9 % (0-9) Eosinophils (%) (Auto) 3 % (0-3) Basophils (%) (Auto) 1 % (0-3) Neutrophils # (Auto) 5.7 x10^3uL (1.8-7.7) Lymphocytes # (Auto) 2.2 x10^3/uL (1.0-4.8) Monocytes # (Auto) 0.9 x10^3/uL (0.0-1.1) Eosinophils # (Auto) 0.3 x10^3/uL (0.0-0.7) Basophils # (Auto) 0.0 x10^3/uL (0.0-0.2) Sodium Level 144 mmol/L (136-145) Potassium Level 4.0 mmol/L (3.5-5.1) Chloride Level 105 mmol/L (98-107) Carbon Dioxide Level 34 mmol/L (21-32) Anion Gap 5 (6-14) Blood Urea Nitrogen 15 mg/dL (7-20) Creatinine 0.6 mg/dL (0.6-1.0) Estimated GFR (Cockcroft-Gault) 100.6 BUN/Creatinine Ratio 25 (6-20) Glucose Level 102 mg/dL (70-99) Calcium Level 8.2 mg/dL (8.5-10.1) Total Bilirubin 0.2 mg/dL (0.2-1.0) Aspartate Amino Transf (AST/SGOT) 14 U/L (15-37) Alanine Aminotransferase (ALT/SGPT) 20 U/L (14-59) Alkaline Phosphatase 71 U/L (46-116) Troponin I Quantitative < 0.017 ng/mL (0.000-0.055) < 0.017 ng/mL (0.000-0.055) Total Protein 6.6 g/dL (6.4-8.2) Albumin 3.3 g/dL (3.4-5.0) Albumin/Globulin Ratio 1.0 (1.0-1.7) Thyroid Stimulating Hormone (TSH) 3.992 uIU/mL (0.358-3.74) Free Thyroxine 0.92 ng/dL (0.76-1.46) Free Triiodothyronine (T3) pg/mL 1.70 pg/mL (2.18-3.98) Brief Hospital Course Ms. Burk is a 66 old [sex] who presented with [ ] Pleasant 66 y.o female, admitted for palpitations she can hear on R side of her head. HR 100 bpm at rest, no BOV, headaches, ringing of ears. New onset, no other sxs. On metoprolol 100 ER qD. also on synthroid, PCP dr. Soares, has been on that dose for long time,. Claims compliance. CArds has seen, no further work up,. BUt HR remains at 100 bpm with sxs still persistent. No excessive caffeinated na use. COURSE: CARds adjusted meds, inc BB to 150 POqD\, dec losartan from 50 to 25 qD. ALso I have inc synthroid from 100 to 125 mcg per day F fup PCP Ivan RN and Cards c/o Jennifer 2 notes today Discharge Information Scheduled Aspirin (Aspirin), 1 TAB PO DAILY, (Reported) Atorvastatin Calcium (Atorvastatin Calcium), 1 TAB PO DAILY, (Reported) Cetirizine Hcl (Zyrtec), 1 TAB PO DAILY, (Reported) Cholecalciferol (Vitamin D3) (Vitamin D-3), 2,000 UNIT PO DAILY, (Reported) Furosemide (Furosemide), 1 TAB PO DAILY, (Reported) Levothyroxine Sodium (Levothyroxine Sodium), 1 TAB PO DAILY, (Reported) Losartan Potassium (Losartan Potassium), 1 TAB PO DAILY, (Reported) Metoprolol Succinate (Toprol Xl), 1 TAB PO DAILY, (Reported) Mometasone/Formoterol (Dulera 200 Mcg/5 Mcg Inhaler), 2 PUFF IH BID, (Reported) Pnv95/Ferrous Fumarate/FA ( Caplet), 1 EACH PO DAILY, (Reported) Pot Chloride/Pot Bicarb/Cit Ac (Potassium Cl 25 Meq Tab Eff), 1 TAB PO DAILY, ( Reported) Pramipexole Di-Hcl (Mirapex), 1 TAB PO DAILY, (Reported) Ubidecarenone (Co Q-10), 1 TAB PO DAILY, (Reported) Scheduled PRN Ibuprofen (Ibuprofen), 800 MG PO PRN Q6HRS PRN for INFLAMMATION, (Reported) Tizanidine Hcl (Tizanidine Hcl), 4 MG PO QID PRN for MUSCLE SPASMS, (Reported) Miscellaneous Medications Ipratropium/Albuterol Sulfate (Combivent Respimat Inhal), (Reported) SONALI LANDERS MD Jan 06, 2017 15:30
[2017-01-06] MEDS ORDERED: LOSA25TA4 PO (15:33)
--- NOTE | 2017-01-06 16:27 | EKG ---
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
[2017-01-06] MEDS ORDERED: ATORVASTATIN CALCIUM 10 MG TABLET. PO SCH (21:00)
[2017-01-07] MEDS ORDERED: LEVOTHYROXINE 125 MCG TABLET PO SCH (07:00)
[2017-01-07] MEDS ORDERED: PRENATAL MULTIVITAMIN TABLET. PO SCH (09:00)
[2017-01-07] MEDS ORDERED: LOSARTAN POTASSIUM 25 MG TABLET. PO SCH (09:00)
[2017-01-07] MEDS ORDERED: METOPROLOL SUCC 24HR ER 50 MG TAB.ER.24H. PO SCH (09:00)
== END 2017-01-06 17:15 | disposition home or self-care (01) ==
LOC: ER 02:24 → INTOOBSV 03:55 → 2 NORTH 03:55
PROVIDERS: ADMIT Internal Medicine; ATTEND Internal Medicine
DX: R07.89 Other chest pain (principal); R00.2 Palpitations; E03.9 Hypothyroidism, unspecified; M79.7 Fibromyalgia; I10 Essential (primary) hypertension; I25.10 Atherosclerotic heart disease of native coronary artery without angina pectoris; E78.5 Hyperlipidemia, unspecified; J44.9 Chronic obstructive pulmonary disease, unspecified; F41.9 Anxiety disorder, unspecified; E66.9 Obesity, unspecified; I42.9 Cardiomyopathy, unspecified; J06.9 Acute upper respiratory infection, unspecified; G47.00 Insomnia, unspecified; F32.9 Major depressive disorder, single episode, unspecified; E78.00 Pure hypercholesterolemia, unspecified; I25.2 Old myocardial infarction; M19.90 Unspecified osteoarthritis, unspecified site; Z90.710 Acquired absence of both cervix and uterus; Z87.891 Personal history of nicotine dependence; Z83.3 Family history of diabetes mellitus
CPT/HCPCS: 36415; 71010; 80053; 84439; 84443; 84481; 84484; 85027; 93005; 94250; 94640; 94760; 96361; 96374; 96375; 99285; G0378; J2060; J2405; J7030; J7620; G0379

== ENCOUNTER → 2017-02-26 | Outpatient (CLI) | payer OTHER, MEDICARE ==
[~2017-02-26] MED LIST changes: +LEVO125T5 PO; +LOSA25TA4 PO
--- NOTE | 2017-02-26 10:58 | RAD ---
Addendum: The initial report dictated under this patient was a CT abdomen and pelvis on the incorrect patient. The following CT chest report corresponds to the correct patient Irina Burk: CT chest without contrast 02/26/2017 Clinical indication: COPD with cough and history of tobacco use disorder. Comparison: CT chest with contrast 11/14/2012 Technique: Multiple CT noncontrast images of the chest were obtained according to standard protocol. Coronal and sagittal reformations were obtained PQRS Compliance Statement: One or more of the following individualized dose reduction techniques were utilized for this examination: 1. Automated exposure control 2. Adjustment of the mA and/or kV according to patient size 3. Use of iterative reconstruction technique Findings: Chest: Heart is mildly enlarged without significant pericardial effusion. Coronary artery calcifications are noted. Main pulmonary artery is mildly enlarged. Thoracic aorta is normal in caliber with mild scattered calcified atheromatous disease. No axillary, mediastinal or hilar lymphadenopathy, though evaluation is somewhat limited due to lack of intravenous contrast. There are right hilar calcified lymph nodes. The central airways are patent. There is mild upper lobe predominant centrilobular emphysema. 7 mm noncalcified nodule in the right lower lobe (series 7/image 138). 3 mm noncalcified nodule in the left upper lobe disease series 7/image 125). No pleural effusion or pneumothorax. 3 mm noncalcified nodule in the subpleural right lower lobe (series 7/image 168). Benign calcified granuloma in the right upper lobe. Mild scattered areas of pleural-parenchymal scarring. There are no destructive osseous lesions. Multilevel visualized lower cervical and thoracic spondylosis. Limited images of the upper abdomen: There is a small high density structure in the superior pole right kidney with average Hounsfield units of greater than 70 compatible with hemorrhagic cyst. Impression: 1. Bilateral noncalcified pulmonary nodules, largest in the right lower lobe measuring 7 mm, stable since November 14, 2012 and considered benign, however additional sub-5 mm bilateral nodules are not definitively identified on prior examination. Noncontrast CT chest in 6 months is recommended to assess for stability. 2. Mild emphysema. 3. Mild cardiomegaly and main pulmonary artery enlargement can be seen with pulmonary artery hypertension. 4. Coronary artery calcifications.
== END | disposition home or self-care (01) ==
LOC: CT 07:45
PROVIDERS: ATTEND Internal Medicine Pulmonary Disease
DX: J44.9 Chronic obstructive pulmonary disease, unspecified (principal); I25.10 Atherosclerotic heart disease of native coronary artery without angina pectoris; I51.7 Cardiomegaly; R05 Cough; Z87.891 Personal history of nicotine dependence
CPT/HCPCS: 71250

== ENCOUNTER 2017-06-19 03:10 | Emergency (ER) | payer OTHER, MEDICARE ==
[~2017-06-19] VITALS: Ht 162.6 cm; Wt 86.6 kg
--- NOTE | 2017-06-19 03:27 | PHYS DOC ---
Past Medical History Past Medical History: Anxiety, COPD, Depression, Diverticulitis, High Cholesterol, Hypertension, [place] Past Surgical History: Hysterectomy, Tonsillectomy, Other Additional Past Surgical Histo: eye surgery, sinus Alcohol Use: None Drug Use: None Adult General Chief Complaint Chief Complaint: NOSEBLEED HPI HPI Patient is a 66 year old female who presents with nosebleed. She states that she's had forearm over the last month and has been using ocean on a nasal spray this morning around 2:30 is started. Patient is bleeding from both nares. She states usually when using a humidifier at home. She is on an aspirin daily. Review of Systems Review of Systems Constitutional: Denies fever or chills [] Eyes: Denies change in visual acuity, redness, or eye pain [] HENT: Denies nasal congestion or sore throat, positive for nosebleed Respiratory: Denies cough or shortness of breath [] Cardiovascular: No additional information not addressed in HPI [] GI: Denies abdominal pain, nausea, vomiting, bloody stools or diarrhea [] : Denies dysuria or hematuria [] Musculoskeletal: Denies back pain or joint pain [] Integument: Denies rash or skin lesions [] Neurologic: Denies headache, focal weakness or sensory changes [] Endocrine: Denies polyuria or polydipsia [] All other systems were reviewed and found to be within normal limits, except as documented in this note. Current Medications Current Medications Current Medications Medications (Trade) Dose Ordered Sig/Mo Start Time Stop Time Status Last Admin Dose Admin Oxymetazoline HCl (Afrin) 2 spray 1X ONCE 06/19/17 04:00 06/19/17 04:01 DC 06/19/17 04:00 2 SPRAY Allergies Allergies Allergies Coded Allergies Type Severity Reaction Last Updated Verified codeine Allergy Intermediate Nausea 08/23/13 Yes levofloxacin Allergy Intermediate Unknown 05/18/17 Yes simvastatin Allergy Intermediate Unknown 05/18/17 Yes theophylline Allergy Intermediate 08/05/16 Yes latex Allergy Unknown 05/19/17 Yes cephalexin Adverse Reaction Mild Diarrhea 08/05/16 Yes Physical Exam Physical Exam Constitutional: Well developed, well nourished, no acute distress, non-toxic appearance. [] HENT: Normocephalic, atraumatic, bilateral external ears normal, oropharynx moist, no oral exudates, nose normal. Bleeding from both naris, blood in the posterior pharynx. Eyes: PERRLA, EOMI, conjunctiva normal, no discharge. [] Neck: Normal range of motion, no tenderness, supple, no stridor. [] Cardiovascular:Heart rate regular rhythm, no murmur [] Lungs & Thorax: Bilateral breath sounds clear to auscultation [] Abdomen: Bowel sounds normal, soft, no tenderness, no masses, no pulsatile masses. [] Skin: Warm, dry, no erythema, no rash. [] Back: No tenderness, no CVA tenderness. [] Extremities: No tenderness, no cyanosis, no clubbing, ROM intact, no edema. [] Neurologic: Alert and oriented X 3, normal motor function, normal sensory function, no focal deficits noted. [] Psychologic: Affect normal, judgement normal, mood normal. [] Current Patient Data Vital Signs Vital Signs Date Time Temp Pulse Resp B/P (MAP) Pulse Ox O2 Delivery O2 Flow Rate FiO2 06/19/17 03:20 98.4 89 22 148/80 (102) 98 Room Air 98.4 EKG EKG [] Radiology/Procedures Radiology/Procedures [] Impressions: Epistasis Course & Med Decision Making Course & Med Decision Making Pertinent Labs and Imaging studies reviewed. (See chart for details) Afrin was used and then it nose clip was applied however she continued to bleed the back of her throat. A 7.5 anterior posterior Rhino Rocket was applied to the right near her bleeding is stopped. She was watched for additional hour and now is being discharged home. She being discharged with Augmentin. She has an ENT she'll follow up with that she is instructed follow-up with him on Wednesday. Return precautions given for worsening bleeding, lightheaded, dizziness, nausea vomiting is uncontrolled or other concerns. Dragon Disclaimer Dragon Disclaimer This electronic medical record was generated, in whole or in part, using a voice recognition dictation system. Departure Departure Impression: Primary Impression: Epistaxis Disposition: HOME, SELF-CARE Condition: STABLE Referrals: JERROD DAMIAN MD (PCP) Patient Instructions: Nosebleed Additional Instructions: You will need to use Augmentin for the next 10 days. Please follow-up with your his nose and throat doctor. If you have additional bleeding, felt lightheaded dizzy, have chest pain, shortness of breath, uncontrolled nausea vomiting or other concerns please return back to the ER. Scripts Amoxicillin/Potassium Clav (AUGMENTIN 875-125 TABLET) 1 Each Tablet 1 TAB PO BID, #20 TAB Prov: ROXANA ZARAGOZA MD 06/19/17 ROXANA ZARAGOZA MD Jun 19, 2017 03:27
[2017-06-19] MEDS ORDERED: OXYMETAZOLINE 0.05% NASAL SPRAY 30ML BOTTLE. NS ONE (04:00)
[2017-06-19] MEDS ORDERED: AMOX1TAB61 PO (05:00)
[2017-06-19 05:30] VITALS: BP 141/84
== END 2017-06-19 05:30 | disposition home or self-care (01) ==
LOC: ER 03:10
DX: R04.0 Epistaxis (principal); E78.00 Pure hypercholesterolemia, unspecified; I10 Essential (primary) hypertension; J44.9 Chronic obstructive pulmonary disease, unspecified; I25.2 Old myocardial infarction; Z90.710 Acquired absence of both cervix and uterus; Z88.5 Allergy status to narcotic agent; Z88.1 Allergy status to other antibiotic agents; Z88.8 Allergy status to other drugs, medicaments and biological substances; Z91.040 Latex allergy status
CPT/HCPCS: 30901; 99284-25

== ENCOUNTER → 2017-07-22 | Day surgery (SDC) | payer OTHER, MEDICARE ==
[~2017-07-22] MED LIST changes: -AMOX1TAB11 PO; -ASPI-630 PO; -ATOR10TA60 PO; -CALC-112 PO; -CETI10CA PO; -CHOL200074 PO; -CITA20TA5 PO; -FURO40TA4 PO; -IBUP-1060 PO; -IPRA4AER; -LEVO100T5 PO; -LEVO125T5 PO; -LEVO88CA PO; +LIDOCAINE 1% PF 2 ML VIAL. ID; -LOSA25TA4 PO; -LOSA50TA6 PO; -METO-269 PO; -METO100T5 PO; -MOME13HF IH; -MOME13HF2; +MORPHINE SULFATE 2 MG/ML DISP.SYRIN. IV; +ONDANSETRON PF 4 MG/2 ML VIAL. IV; -PNV91TAB3 PO; -POT25TAB PO; -PRAM0.125 PO; +PROCHLORPERAZINE 10 MG/2 ML VIAL. IV; +PROPOFOL 20 ML IV; -TIZA4TAB PO; -TOPI200C PO; -TOPI50CA PO; -UBID100C40 PO; +fentaNYL PF VIAL 100 MCG/2 ML VIAL IV
[2017-07-22] MEDS: IV RINGERS,LACTATED 1000ML 1,000 ML IV (08:43)
== END | disposition home or self-care (01) ==
LOC: ENDOS 08:11
DX: Z12.11 Encounter for screening for malignant neoplasm of colon (principal); K57.30 Diverticulosis of large intestine without perforation or abscess without bleeding; K64.4 Residual hemorrhoidal skin tags; K64.1 Second degree hemorrhoids; E78.00 Pure hypercholesterolemia, unspecified; I10 Essential (primary) hypertension; J44.9 Chronic obstructive pulmonary disease, unspecified; F41.9 Anxiety disorder, unspecified; F32.9 Major depressive disorder, single episode, unspecified; Z86.69 Personal history of other diseases of the nervous system and sense organs; Z90.710 Acquired absence of both cervix and uterus; Z87.39 Personal history of other diseases of the musculoskeletal system and connective tissue; Z88.6 Allergy status to analgesic agent; Z88.1 Allergy status to other antibiotic agents; Z88.8 Allergy status to other drugs, medicaments and biological substances
CPT/HCPCS: 45378; J2704

== ENCOUNTER 2017-08-16 11:42 | Emergency (ER) | payer OTHER, MEDICARE ==
[2017-08-16] MEDS: IPRATRPIUM/ALBUTEROL 0.5/2.5MG 3 ML NEBU. NEB (12:47)
[2017-08-16] MEDS: methylPREDNISolone SOD SUCC PF 125 MG/2 ML VIAL. IV (12:47)
[2017-08-16] MEDS: IV NORMAL SALINE 1000ML BAG 1,000 ML IV (12:47)
[2017-08-16 12:58] LABS: BASO # 0.1 x10^3/uL (0.0-0.2); BASO % 1 % (0-3); EOS # 1.3 x10^3/uL (0.0-0.7); EOS % 14 % (0-3); HEMATOCRIT 41.1 % (36.0-47.0); LYMPH # 1.5 x10^3/uL (1.0-4.8); LYMPH % 17 % (24-48); MEAN CORPUSCULAR HEMOGLOBIN 29 pg (25-35); MEAN CORPUSCULAR HGB CONC 32 g/dL (31-37); MEAN CORPUSCULAR VOLUME 90 fL (79-100); MONO % 11 % (0-9); NEUT % 57 % (31-73); PLATELET COUNT 268 x10^3/uL (140-400); RED BLOOD COUNT 4.57 x10^6/uL (3.50-5.40); RED CELL DISTRIBUTION WIDTH 13.7 % (11.5-14.5); WHITE BLOOD COUNT 8.8 x10^3/uL (4.0-11.0)
[2017-08-16 13:04] LABS: ADD MAN DIFF? YES
[2017-08-16 13:09] LABS: ANION GAP 6 (6-14); BLOOD UREA NITROGEN 13 mg/dL (7-20); BUN/CREATININE RATIO 22 (6-20); CALCIUM 7.8 mg/dL (8.5-10.1); CARBON DIOXIDE 31 mmol/L (21-32); CHLORIDE 104 mmol/L (98-107); CREATININE 0.6 mg/dL (0.6-1.0); GFR 100.3; GLUCOSE 99 mg/dL (70-99); SODIUM 141 mmol/L (136-145)
[2017-08-16 13:17] LABS: ALBUMIN 3.2 g/dL (3.4-5.0); ALBUMIN/GLOBULIN RATIO 0.9 (1.0-1.7); ALK PHOS 68 U/L (46-116); ALT (SGPT) 17 U/L (14-59); AST (SGOT) 9 U/L (15-37); TOTAL BILIRUBIN 0.3 mg/dL (0.2-1.0); TOTAL PROTEIN 6.7 g/dL (6.4-8.2)
[2017-08-16 13:21] LABS: NT-PRO BNP 225 pg/mL (0-124)
[2017-08-16 13:21] LABS: INFLUENZA A PATIENT NEGATIVE (NEGATIVE); INFLUENZA B PATIENT NEGATIVE (NEGATIVE); OBC FLU VALID
[2017-08-16 13:27] LABS: % EOS 15 % (0-5); % LYMPHS 30 % (24-48); % MONOS 10 % (0-10); % SEGS 45 % (35-66)
[2017-08-16 13:28] LABS: PLT ESTIMATE ADEQUATE (ADEQUATE)
== END 2017-08-16 14:59 | disposition home or self-care (01) ==
LOC: ER 11:42
DX: J44.1 Chronic obstructive pulmonary disease with (acute) exacerbation (principal); E78.00 Pure hypercholesterolemia, unspecified; I25.2 Old myocardial infarction; Z88.1 Allergy status to other antibiotic agents; Z88.5 Allergy status to narcotic agent; Z88.8 Allergy status to other drugs, medicaments and biological substances
CPT/HCPCS: 36415; 71045; 80053; 83880; 85007; 85025; 87804; 87804-59; 93005; 94640; 96361; 96374; 99285-25; J2930; J7030; J7620

== ENCOUNTER → 2017-09-10 | Outpatient (CLI) | payer OTHER, MEDICARE | END | disposition home or self-care (01) | LOC: CT 10:38 | DX: J43.9 Emphysema, unspecified (principal); M47.894 Other spondylosis, thoracic region; I25.10 Atherosclerotic heart disease of native coronary artery without angina pectoris; I51.7 Cardiomegaly; I70.0 Atherosclerosis of aorta | CPT/HCPCS: 71250 ==

== ENCOUNTER → 2017-09-27 | Outpatient (CLI) | payer OTHER, MEDICARE | END | disposition home or self-care (01) | LOC: CT 09:18 | DX: J32.9 Chronic sinusitis, unspecified (principal); Z98.890 Other specified postprocedural states | CPT/HCPCS: 70486 ==

== ENCOUNTER → 2018-04-08 | Outpatient (CLI) | payer OTHER ==
[2017-08-16 14:17] VITALS: BP 133/80
[~2018-04-08] MED LIST changes: +AMOX1TAB11 PO; +AMOX1TAB61 PO; +ASPI-630 PO; +ATOR10TA60 PO; +CALC-112 PO; +CETI10CA PO; +CHOL200074 PO; +CITA20TA6 PO; +ESCITALOPRAM OX10 MG PO; +FURO40TA4 PO; +IBUP-1060 PO; +IPRA4AER; +LEVO100T5 PO; +LEVO125T5 PO; +LEVO88CA PO; -LIDOCAINE 1% PF 2 ML VIAL. ID; +LOSA25TA5 PO; +LOSA50TA7 PO; +METO-247 PO; +METO-269 PO; +METO100T5 PO; +MOME13HF IH; +MOME13HF2; -MORPHINE SULFATE 2 MG/ML DISP.SYRIN. IV; +MUPI22OI2 TP; -ONDANSETRON PF 4 MG/2 ML VIAL. IV; +PNV91TAB3 PO; +POT25TAB PO; +POTA20TA82 PO; +PRAM0.125 PO; +PRED-220 PO; -PROCHLORPERAZINE 10 MG/2 ML VIAL. IV; -PROPOFOL 20 ML IV; +TIZA4TAB PO; +TOPI200C6 PO; +TOPI50CA6 PO; +UBID100C40 PO; -fentaNYL PF VIAL 100 MCG/2 ML VIAL IV
--- NOTE | 2018-04-08 14:59 | RAD ---
Examination: CT chest without contrast HISTORY: History of lung nodule COMPARISON: 09/10/2017 Exposure: One or more of the following individualized dose reduction techniques were utilized for this examination: 1. Automated exposure control 2. Adjustment of the mA and/or kV according to patient size 3. Use of iterative reconstruction technique Technique: Axial CT images of the chest were performed without contrast. Coronal and sagittal reformats are performed FINDINGS: The central airways are patent. Mild cardiomegaly. Mild aortic atherosclerosis. Coronary artery calcifications. Mild apical emphysematous changes identified. Faint pulmonary nodules identified scattered in the bilateral lungs with the largest measuring 6 mm in the right lower lobe of the grossly similar to prior exam. No evidence of pleural effusion or pneumothorax. Visualized noncontrasted liver, spleen, adrenals grossly appears unremarkable. Moderate degenerative changes thoracic spine. IMPRESSION: 1. Unchanged 6 mm pulmonary nodule right lower lobe of the lung. 2. Mild lung emphysematous changes. 3. Coronary artery calcifications. Electronically signed by: Juan Covarrubias MD (04/08/2018 2:55 PM) [id number]
== END | disposition home or self-care (01) ==
LOC: CT 11:17
PROVIDERS: ATTEND Internal Medicine Pulmonary Disease
DX: I25.10 Atherosclerotic heart disease of native coronary artery without angina pectoris (principal); R91.1 Solitary pulmonary nodule; I25.2 Old myocardial infarction; I10 Essential (primary) hypertension; E78.00 Pure hypercholesterolemia, unspecified; J44.9 Chronic obstructive pulmonary disease, unspecified; G43.909 Migraine, unspecified, not intractable, without status migrainosus; Z87.891 Personal history of nicotine dependence; Z87.39 Personal history of other diseases of the musculoskeletal system and connective tissue; Z86.69 Personal history of other diseases of the nervous system and sense organs; Z90.710 Acquired absence of both cervix and uterus; Z88.1 Allergy status to other antibiotic agents; Z88.5 Allergy status to narcotic agent; Z88.6 Allergy status to analgesic agent; Z88.8 Allergy status to other drugs, medicaments and biological substances; Z83.3 Family history of diabetes mellitus
CPT/HCPCS: 71250

== ENCOUNTER 2018-05-14 22:20 | Emergency (ER) | payer OTHER ==
[~2018-05-14] VITALS: Ht 165.1 cm; Wt 80.3 kg
[2018-05-14 22:32] VITALS: BP 139/65
[2018-05-14] MEDS ORDERED: HYDROcodone/APAP 5/325MG 1 TAB TABLET PO ONE (23:00)
[2018-05-14] MEDS ORDERED: ONDANSETRON ODT 4 MG TAB.RAPDIS. PO ONE (23:00)
--- NOTE | 2018-05-14 23:16 | PHYS DOC ---
Past Medical History Past Medical History: Anxiety, COPD, Depression, Diverticulitis, High Cholesterol, Hypertension, [place] Past Surgical History: Hysterectomy, Tonsillectomy, Other Additional Past Surgical Histo: eye surgery, sinus Alcohol Use: None Drug Use: None Adult General Chief Complaint Chief Complaint: ANKLE PROBLEM HPI HPI Patient is a 67 year old female with history of COPD on oxygen, hypertension, anxiety, who presents today complaining of 8 out of 10 right lateral ankle pain that began a couple minutes prior to coming to the ED. Patient states she was admitted the neck. When she fell. Patient denies any loss of consciousness. Patient states her pain is worse on weight bearing. Review of Systems Review of Systems Constitutional: Denies fever or chills [] Musculoskeletal: Reports right ankle pain Integument: Denies rash or skin lesions [] Neurologic: Denies headache, focal weakness or sensory changes [] All other systems were reviewed and found to be within normal limits, except as documented in this note. Current Medications Current Medications Current Medications Medications (Trade) Dose Ordered Sig/Mo Start Time Stop Time Status Last Admin Dose Admin Acetaminophen/ Hydrocodone Bitart (Lortab 5/325) 1 tab 1X ONCE 05/14/18 23:00 05/14/18 23:01 DC 05/14/18 23:10 1 TAB Ondansetron HCl (Zofran Odt) 4 mg 1X ONCE 05/14/18 23:00 05/14/18 23:01 DC 05/14/18 23:09 4 MG Allergies Allergies Allergies Coded Allergies Type Severity Reaction Last Updated Verified codeine Allergy Intermediate Nausea 08/23/13 Yes levofloxacin Allergy Intermediate Unknown 05/18/17 Yes simvastatin Allergy Intermediate Unknown 05/18/17 Yes theophylline Allergy Intermediate 08/05/16 Yes cephalexin Adverse Reaction Mild Diarrhea 08/05/16 Yes Physical Exam Physical Exam Constitutional: Well developed, well nourished, no acute distress, non-toxic appearance. [] Skin: Warm, dry, no erythema, no rash. [] Back: No tenderness, no CVA tenderness. [] Extremities: Right ankle with no obvious deformity, mild soft tissue swelling noted on the right lateral ankle. Tenderness on palpation of the right lateral ankle. Full range of motion to the right ankle. +2 right pedal pulse. Cap refill less than 2 seconds the right toes. Sensation intact to the right lower extremity. Neurologic: Alert and oriented X 3, normal motor function, normal sensory function, no focal deficits noted. [] Psychologic: Affect normal, judgement normal, mood normal. [] Current Patient Data Vital Signs Vital Signs Date Time Temp Pulse Resp B/P (MAP) Pulse Ox O2 Delivery O2 Flow Rate FiO2 05/14/18 23:10 16 Nasal Cannula 05/14/18 22:32 98.3 77 139/65 (89) 99 2.5 98.3 EKG EKG [] Radiology/Procedures Radiology/Procedures [] Course & Med Decision Making Course & Med Decision Making Pertinent Labs and Imaging studies reviewed. (See chart for details) This is a 67-year-old female patient presenting to the ED today with right ankle pain that began after she fell today. Right ankle x-rays interpreted by Dr. Giraldo were noted for distal fibular fracture. Patient was placed in a posterior leg splint by the hearing aide technician, neurovascular exam done by me is intact. Ice elevation encouraged. Follow-up with orthopedic doctor on Wednesday. ( Staff Physician Addendum: I was working in the ER during the course of this patient's visit. I was available for consultation as needed, but I was not directly involved in the care of this patient. Dragon Disclaimer Dragon Disclaimer This electronic medical record was generated, in whole or in part, using a voice recognition dictation system. Departure Departure Impression: Primary Impression: Fibula fracture Additional Impression: Fall from standing Disposition: 01 HOME, SELF-CARE Condition: STABLE (this is a 72 he started is in the nose normal) Referrals: JERROD DAMIAN MD (PCP) BAUTISTA TOVAR MD call his office on Wednesday and set up a follow up appointment Patient Instructions: Fall Prevention and Home Safety, Fibular Fracture with [facility] Additional Instructions: You were seen for right ankle fracture. Ice elevate the extremity. Contact the provided orthopedic doctor on Wednesday and follow-up with them. Take the prescribed pain medicine as needed for pain. Scripts Hydrocodone/Apap 5-325 (NORCO 5-325 TABLET) 1 Each Tablet 1 TAB PO Q6HRS PRN for PAIN, #20 TAB Prov: VARINDERAMIKEY WIRE TWISTING MACHINE OPERATOR 05/14/18 Problem Qualifiers Primary Impression: Fibula fracture Encounter type: initial encounter Fibula location: distal Fracture type: closed Fracture morphology: unspecified fracture morphology Laterality: right Qualified Codes: S82.831A - Other fracture of upper and lower end of right fibula, initial encounter for closed fracture Additional Impression: Fall from standing Encounter type: initial encounter Qualified Codes: W19.XXXA - Unspecified fall, initial encounter MIKEY CONDON APRN May 14, 2018 23:16 BRAIN GIRALDO MD May 15, 2018 00:27
[2018-05-14] MEDS ORDERED: HYDR-971 PO (23:28)
--- NOTE | 2018-05-15 08:52 | RAD ---
ANKLE RIGHT 3V (AP, oblique, lateral) INDICATION: Twisted ankle and fell COMPARISON: None. FINDINGS: Suspected small nondisplaced fracture of the tip of the distal fibula. Mild ankle and midfoot arthrosis. Calcaneal enthesophytes. Bony mineralization is normal for the patient's age. Moderate soft tissue swelling of the lateral ankle No radiopaque foreign body. IMPRESSION: 1. Suspected small nondisplaced fracture of the tip of the distal fibula. 2. Moderate soft tissue swelling of the lateral ankle. Electronically signed by: Bartolome Martinez MD (05/15/2018 8:48 AM) [facility]
== END 2018-05-15 00:07 | disposition home or self-care (01) ==
LOC: ER 22:20
DX: S82.831A Other fracture of upper and lower end of right fibula, initial encounter for closed fracture (principal); F41.9 Anxiety disorder, unspecified; J44.9 Chronic obstructive pulmonary disease, unspecified; E78.00 Pure hypercholesterolemia, unspecified; I25.2 Old myocardial infarction; I10 Essential (primary) hypertension; Z90.89 Acquired absence of other organs; Z90.710 Acquired absence of both cervix and uterus; Z88.5 Allergy status to narcotic agent; Z88.8 Allergy status to other drugs, medicaments and biological substances; Z88.1 Allergy status to other antibiotic agents; W18.39XA Other fall on same level, initial encounter; Y93.89 Activity, other specified; Y92.89 Other specified places as the place of occurrence of the external cause; Y99.8 Other external cause status
CPT/HCPCS: 29515; 73610; 99284; Q0162

== ENCOUNTER 2018-05-17 10:53 | Emergency (ER) | payer OTHER, MEDICARE ==
[~2018-05-17] VITALS: Ht 165.1 cm; Wt 80.3 kg
[~2018-05-17 10:53] MED LIST changes: +HYDR-971 PO
[2018-05-17 12:01] VITALS: BP 118/63
--- NOTE | 2018-05-17 12:58 | RAD ---
PQRS Compliance Statement: One or more of the following individualized dose reduction techniques were utilized for this examination: 1. Automated exposure control 2. Adjustment of the mA and/or kV according to patient size 3. Use of iterative reconstruction technique CT HEAD WITHOUT CONTRAST History: WORSENING HEADACHES, AFTER HITTING HEAD 3 DAYS AGO Comparison: None. Technique: Axial images are obtained of the head from the skull base through the vertex without IV contrast. Findings: No mass-effect, midline shift, extra-axial fluid collection, hemorrhage, or obvious acute infarction is identified. Basilar cisterns are patent. The ventricles and sulci are normal for patient age. Bone windows demonstrate no acute calvarial abnormality. Mild mucosal thickening right maxillary and bilateral sphenoid sinuses. Question prior sinus surgery. Mastoid air cells are well aerated. IMPRESSION: No acute intracranial abnormality. Electronically signed by: Maik Walton MD (05/17/2018 12:43 PM) [id number]
--- NOTE | 2018-05-17 14:24 | PHYS DOC ---
Past Medical History Past Medical History: Anxiety, COPD, Depression, Diabetes-Type II, Diverticulitis, High Cholesterol, Hypertension, CO Past Surgical History: Hysterectomy, Tonsillectomy, Other Additional Past Surgical Histo: eye surgery, sinus Alcohol Use: None Drug Use: None Adult General Chief Complaint Chief Complaint: HEAD INJURY/TRAUMA HPI HPI Patient is a 67 year old female who presents with a headache after she had a head injury 3 days ago. The patient states that she fell forward striking her head on her sister's car. She did fracture her foot in the same accident. She was treated [facility] for the foot fracture. She denies loss of consciousness or laceration. Review of Systems Review of Systems Constitutional: Denies fever or chills [] Eyes: Denies change in visual acuity, redness, or eye pain [] HENT: See history of present illness Respiratory: Denies cough or shortness of breath [] Cardiovascular: No additional information not addressed in HPI [] GI: Denies abdominal pain, nausea, vomiting, bloody stools or diarrhea [] : Denies dysuria or hematuria [] Musculoskeletal: See history of present illness Integument: Denies rash or skin lesions [] Neurologic: Denies headache, focal weakness or sensory changes [] Endocrine: Denies polyuria or polydipsia [] All other systems were reviewed and found to be within normal limits, except as documented in this note. Allergies Allergies Allergies Coded Allergies Type Severity Reaction Last Updated Verified codeine Allergy Intermediate Nausea 08/23/13 Yes levofloxacin Allergy Intermediate Unknown 05/18/17 Yes simvastatin Allergy Intermediate Unknown 05/18/17 Yes theophylline Allergy Intermediate 08/05/16 Yes cephalexin Adverse Reaction Mild Diarrhea 08/05/16 Yes Physical Exam Physical Exam Constitutional: Well developed, well nourished, no acute distress, non-toxic appearance. [] HENT: Normocephalic, atraumatic, bilateral external ears normal, oropharynx moist, no oral exudates, nose normal. [] Eyes: PERRLA, EOMI, conjunctiva normal, no discharge. [] Neck: Normal range of motion, no tenderness, supple, no stridor. [] Cardiovascular:Heart rate regular rhythm, no murmur [] Lungs & Thorax: Bilateral breath sounds clear to auscultation [] Abdomen: Bowel sounds normal, soft, no tenderness, no masses, no pulsatile masses. [] Skin: Warm, dry, no erythema, no rash. [] Back: No tenderness, no CVA tenderness. [] Extremities: The patient does have her right foot splinted Neurologic: Alert and oriented X 3, normal motor function, normal sensory function, no focal deficits noted, cranial nerves II through XII are grossly intact. [] Psychologic: Affect normal, judgement normal, mood normal. [] Current Patient Data Vital Signs Vital Signs Date Time Temp Pulse Resp B/P (MAP) Pulse Ox O2 Delivery O2 Flow Rate FiO2 05/17/18 12:01 98.4 67 20 118/63 (81) 97 Room Air 98.4 EKG EKG [] Radiology/Procedures Radiology/Procedures []PATIENT: PERICO CARVER LACCOUNT: [id number]#: [id number] : 1950 LOCATION: ER AGE: 67 SEX: F EXAM STATUS: REG ER ORD. PHYSICIAN: CYNDY AREVALO APRN REASON: increasing headache after striking head 3 days ago PROCEDURE: CT HEAD WO CONTRAST PQRS Compliance Statement: One or more of the following individualized dose reduction techniques were utilized for this examination: 1. Automated exposure control 2. Adjustment of the mA and/or kV according to patient size 3. Use of iterative reconstruction technique CT HEAD WITHOUT CONTRAST History: WORSENING HEADACHES, AFTER HITTING HEAD 3 DAYS AGO Comparison: None. Technique: Axial images are obtained of the head from the skull base through the vertex without IV contrast. Findings: No mass-effect, midline shift, extra-axial fluid collection, hemorrhage, or obvious acute infarction is identified. Basilar cisterns are patent. The ventricles and sulci are normal for patient age. Bone windows demonstrate no acute calvarial abnormality. Mild mucosal thickening right maxillary and bilateral sphenoid sinuses. Question prior sinus surgery. Mastoid air cells are well aerated. IMPRESSION: No acute intracranial abnormality. Electronically signed by: Maik Walton MD (05/17/2018 12:43 PM) [id number] DICTATED and SIGNED BY: MAIK WALTON MD DATE: 05/17/18 1239 Course & Med Decision Making Course & Med Decision Making Pertinent Labs and Imaging studies reviewed. (See chart for details) [] Dragon Disclaimer Dragon Disclaimer This electronic medical record was generated, in whole or in part, using a voice recognition dictation system. Departure Departure Impression: Primary Impression: Headache Disposition: 01 HOME, SELF-CARE Condition: STABLE Referrals: JERROD DAMIAN MD (PCP) Patient Instructions: Headache, FAQs Additional Instructions: May continue to take your at-home pain relievers. You may also try ibuprofen. Follow-up with your primary care provider for reevaluation if not improving in 2 days or return to the emergency department if worsening. CYNDY AREVALO PROCUREMENT REPRESENTATIVE May 17, 2018 14:23
== END 2018-05-17 14:19 | disposition home or self-care (01) ==
LOC: ER 10:53
DX: R51 Headache (principal); F41.9 Anxiety disorder, unspecified; J44.9 Chronic obstructive pulmonary disease, unspecified; E11.9 Type 2 diabetes mellitus without complications; E78.00 Pure hypercholesterolemia, unspecified; I10 Essential (primary) hypertension; I25.2 Old myocardial infarction; Z90.710 Acquired absence of both cervix and uterus; Z90.89 Acquired absence of other organs; Z88.5 Allergy status to narcotic agent; Z88.1 Allergy status to other antibiotic agents; Z88.8 Allergy status to other drugs, medicaments and biological substances
CPT/HCPCS: 70450; 99284

== ENCOUNTER → 2018-05-26 | Outpatient (CLI) | payer OTHER, MEDICARE ==
[2018-05-17 12:01] VITALS: BP 118/63
[~2018-05-26] MED LIST changes: +CONTRAST GIVEN. MC PRN; +IOHEXOL 240 MG/ML 50ML VIAL. PO ONE; +IOHEXOL 300 MG/ML 100ML VIAL. IV ONE
[2018-05-26 11:54] LABS: CREATININE 0.7 mg/dL (0.6-1.0)
--- NOTE | 2018-05-26 15:51 | RAD ---
EXAM: CT Abdomen and Pelvis with IV contrast CLINICAL HISTORY: LOWER ABD PAIN INJ 75ML OMNI 300 PREV SENT . COMPARISON: none TECHNIQUE: Helical CT of the abdomen and pelvis was performed following the administration of intravenous contrast. Oral contrast was administered. Axial, coronal and sagittal reformatted images were generated. PQRS compliance statement - One or more of the following individualized dose reduction techniques were utilized for this study: 1. Automated exposure control 2. Adjustment of the mA and/or kV according to patient size 3. Use of iterative reconstruction technique FINDINGS: Lower chest: Subpleural opacities in the right greater than left lung base likely atelectasis or scarring. Coronary artery and aortic root calcifications are seen. Abdomen and Pelvis: No focal liver lesion. Liver is enlarged measuring 20 cm in length. High density material dependently within the gallbladder possibly small stones or sludge. No biliary ductal dilatation. Spleen is unremarkable. It adrenal glands are normal. Symmetric nephrograms. No focal renal lesion. No hydronephrosis. Small large bowel are normal in caliber without evidence of obstruction. However there is marked fat infiltration and edema about the sigmoid colon spanning a segment of approximately 15 cm. No evidence of free intraperitoneal, portal venous or mesenteric gas is identified. Small volume associated fluid however no loculation is identified. In the right abdomen, there is a ectatic cylindrical structure with associated calcifications, possibly aneurysmal, grossly stable to prior CT 06/29/2015. No abdominal lymphadenopathy by size criteria although some reactive mesenteric and retroperitoneal lymph nodes are seen measuring <1 cm short axis Bones: Osseous structures are grossly unremarkable aside from degenerative changes of the spine IMPRESSION: 1. Acute diverticulitis of the sigmoid colon without associated loculated fluid collection or free intraperitoneal or portal venous gas 2. She calcifies clinical structure in the right lower quadrant is stable to 06/29/2015, possibly aneurysmal dilatation of a vessel (likely right ovarian artery). If clinically indicated this can be further assessed by a CT angiogram if not already performed. 3. Gallbladder sludge versus small stones dependently within the gallbladder. 4. Hepatomegaly Electronically signed by: Jm Spears MD (05/26/2018 3:48 PM) [facility]
== END | disposition home or self-care (01) ==
LOC: CT 10:41
PROVIDERS: ATTEND Family Medicine
DX: K57.32 Diverticulitis of large intestine without perforation or abscess without bleeding (principal); I77.811 Abdominal aortic ectasia; I25.10 Atherosclerotic heart disease of native coronary artery without angina pectoris; I10 Essential (primary) hypertension; E11.9 Type 2 diabetes mellitus without complications; J44.9 Chronic obstructive pulmonary disease, unspecified; R16.0 Hepatomegaly, not elsewhere classified; Z86.79 Personal history of other diseases of the circulatory system
CPT/HCPCS: 36415; 74177; 82565; 84520; Q9966; Q9967

== ENCOUNTER → 2019-04-28 | Outpatient (CLI) | payer OTHER ==
[~2019-04-28] MED LIST changes: -CONTRAST GIVEN. MC PRN; +HYDR-3164 PO; -HYDR-971 PO; -IOHEXOL 240 MG/ML 50ML VIAL. PO ONE; -IOHEXOL 300 MG/ML 100ML VIAL. IV ONE; +LOSA-73 PO; -LOSA25TA5 PO; +LOSA25TA54 PO; -LOSA50TA7 PO; -TIZA4TAB PO; +TIZA4TAB2 PO
--- NOTE | 2019-04-28 13:37 | KCIC ---
EXAM: Right knee, 3 views. HISTORY: Pain status post fall. COMPARISON: None. FINDINGS: 3 views of the right knee are obtained. There is mild medial and patellofemoral compartment spurring. There is enthesopathy along the superior patella. There is no fracture, dislocation or subacute fixation. There is no significant joint effusion. IMPRESSION: Mild medial and patellofemoral compartment osteoarthritis of the right knee. Electronically signed by: Rashmi Mccullough MD (04/28/2019 1:34 PM) [facility]
== END | disposition home or self-care (01) ==
LOC: KCIC 11:50
PROVIDERS: ATTEND Family Medicine
DX: M25.561 Pain in right knee (principal); M77.8 Other enthesopathies, not elsewhere classified
CPT/HCPCS: 73562

== ENCOUNTER → 2019-05-30 | Outpatient (CLI) | payer OTHER ==
--- NOTE | 2019-05-30 12:08 | CARD ---
MR#: [id number] Date of Study: 05/30/2019 Ordering Physician: LINDSEY BROWN, Referring Physician: LINDSEY BROWN, Tech: Alyce Hawk EARLINE APPROVED REPORT EXAM: Two-dimensional and M-mode echocardiogram with Doppler and color Doppler. Other Information Quality : Good Technically limited study due to lung disease; on oxygen INDICATION Hypertension/HCVD 2D DIMENSIONS RVDd3.1 (2.9-3.5cm)Left Atrium(2D)3.9 (1.6-4.0cm) IVSd0.9 (0.7-1.1cm)Aortic Root(2D)2.5 (2.0-3.7cm) LVDd5.0 (3.9-5.9cm)LVOT Diameter2.2 (1.8-2.4cm) PWd1.1 (0.7-1.1cm)LVDs3.7 (2.5-4.0cm) FS (%) 26.1 %SV60.3 ml LVEF(%)50.0 (>50%) Aortic Valve AoV Peak Harlan.188.5cm/sAoV VTI37.9cm AO Peak GR.14.2mmHgLVOT Peak Harlan.109.5cm/s AO Mean GR.9mmHgAVA (VMAX)2.13cm2 NORAH (VTI)2.10cm2 Mitral Valve MV E Chcdcifr03.8cm/sMV DECEL [id number] MV A Qredmaex010.8cm/sE/A Ratio0.8 Tricuspid Valve TR P. Lqqnzzap412cy/sRAP OPTVMRZA7siNg TR Peak Gr.93gwXwLURP82auGv Pulmonary Vein S1 Tbkgollh85.3cm/sD2 Mxijtlag65.4cm/s LEFT VENTRICLE The left ventricle is normal size. There is normal left ventricular wall thickness. Left ventricle sy stolic function is mildly impaired. The Ejection Fraction is 45-50%. There is mild global hypokinesis of the left ventricle. Transmitral Doppler flow pattern is Grade I-abnormal relaxation pattern. RIGHT VENTRICLE The right ventricle is normal size. The right ventricular systolic function is normal. ATRIA The left atrium size is normal. The right atrium size is normal. The interatrial septum is intact wit h no evidence for an atrial septal defect or patent foramen ovale as noted on 2-D or Doppler imaging. AORTIC VALVE The aortic valve is calcified but opens well. Doppler and Color Flow revealed no significant aortic r egurgitation. There is no significant aortic valvular stenosis. MITRAL VALVE The mitral valve is calcified but opens well. There is no evidence of mitral valve prolapse. There is no mitral valve stenosis. Doppler and Color-flow revealed trace mitral regurgitation. TRICUSPID VALVE The tricuspid valve is normal in structure and function. Doppler and Color Flow revealed trace tricus pid regurgitation. There is moderate pulmonary hypertension. The PA pressure was estimated at 42 mmHg . There is no tricuspid valve stenosis. PULMONIC VALVE The pulmonic valve is not well visualized. Doppler and Color Flow revealed mild pulmonic valvular reg urgitation. There is no pulmonic valvular stenosis. GREAT VESSELS The aortic root is normal in size. The ascending aorta is not well seen. The IVC is normal in size an d collapses >50% with inspiration. PERICARDIAL EFFUSION There is no evidence of significant pericardial effusion. Critical Notification Critical Value: No <Conclusion> Left ventricle systolic function is mildly impaired. The Ejection Fraction is 45-50%. Transmitral Doppler flow pattern is Grade I-abnormal relaxation pattern. Trace mitral regurgitation. Trace tricuspid regurgitation. The PA pressure was estimated at 42 mmHg. There is no evidence of significant pericardial effusion. Signed by : Sree Minor, Electronically Approved : 05/30/2019 12:08:30
== END | disposition home or self-care (01) ==
LOC: ECHO 11:03
PROVIDERS: ATTEND Internal Medicine Cardiovascular Disease
DX: I08.0 Rheumatic disorders of both mitral and aortic valves (principal); I27.20 Pulmonary hypertension, unspecified; I10 Essential (primary) hypertension
CPT/HCPCS: 93306

== ENCOUNTER → 2019-06-01 | Outpatient (CLI) | payer OTHER ==
--- NOTE | 2019-06-01 12:47 | KCIC ---
EXAM: Left hand and wrist, 3 views. HISTORY: Pain after fall. COMPARISON: None. FINDINGS: 3 views of the left hand and wrist are obtained. There is no fracture, dislocation or subluxation. There may be a tiny bone island within the third metacarpal head. IMPRESSION: No acute osseous finding. Electronically signed by: Rashmi Mccullough MD (06/01/2019 12:44 PM) [facility]
--- NOTE | 2019-06-01 12:47 | KCIC ---
EXAM: Left hand and wrist, 3 views. HISTORY: Pain after fall. COMPARISON: None. FINDINGS: 3 views of the left hand and wrist are obtained. There is no fracture, dislocation or subluxation. There may be a tiny bone island within the third metacarpal head. IMPRESSION: No acute osseous finding. Electronically signed by: Rashmi Mccullough MD (06/01/2019 12:44 PM) [facility]
== END | disposition home or self-care (01) ==
LOC: KCIC 12:07
PROVIDERS: ATTEND Family Medicine
DX: M25.532 Pain in left wrist (principal); M79.642 Pain in left hand; W19.XXXA Unspecified fall, initial encounter; Y93.89 Activity, other specified; Y92.89 Other specified places as the place of occurrence of the external cause; Y99.8 Other external cause status
CPT/HCPCS: 73110; 73130

== ENCOUNTER → 2019-06-21 | Outpatient (CLI) | payer OTHER ==
--- NOTE | 2019-06-21 16:19 | KCIC ---
MRI Brain without contrast History: Cephalgia, head injury, falls, daily headaches Technique: Multiplanar, multisequential noncontrast MR imaging was performed of the brain. Comparison: March 24, 2016 Findings: There is some motion degradation. There is no evidence of recent infarct or cytotoxic edema. The ventricles, sulci, and cisterns are within normal limits in size and configuration. There is no significant midline shift, intraaxial mass effect, or focal abnormal extra-axial fluid collection. There is again mild to moderate T2 and FLAIR hyperintense signal abnormality of the tiago and also minimal scattered signal abnormality of the supratentorial white matter overall similar. There is no significant hemosiderin deposition of the brain parenchyma. There is preservation of the major intracranial flow-voids at the skull base. The mastoid air cells are aerated. The cerebellar tonsils are normal in location. There is no significant abnormality of the pineal gland or pituitary gland. There is very minimal sphenoid sinus mucosal thickening, patchy minimal ethmoid air cell mucosal thickening. There again has been lens surgery on the left. There is preserved marrow signal of the clivus. Impression: 1. Findings are similar compared with February 2016 exam. There is again scattered T2 and FLAIR hyperintense signal abnormality of the supratentorial parenchyma and tiago, nonspecific findings probably due to chronic microvascular ischemic disease in a patient this age. Electronically signed by: Michael Samaniego MD (06/21/2019 4:16 PM) [facility]
== END | disposition home or self-care (01) ==
LOC: KCIC MRI 13:40
PROVIDERS: ATTEND Family Medicine
DX: S09.8XXA Other specified injuries of head, initial encounter (principal); I67.82 Cerebral ischemia; Z90.710 Acquired absence of both cervix and uterus; X58.XXXA Exposure to other specified factors, initial encounter; Y93.89 Activity, other specified; Y92.89 Other specified places as the place of occurrence of the external cause; Y99.8 Other external cause status
CPT/HCPCS: 70551

== ENCOUNTER → 2019-06-30 | Outpatient (CLI) | payer OTHER, MEDICARE ==
[~2019-06-30] MED LIST changes: +POTA20TA4 PO; -POTA20TA82 PO
--- NOTE | 2019-06-30 16:04 | RAD ---
Chest CT without contrast Clinical indications: Follow-up of lung nodule COMPARISON: February 26, 2017. April 08, 2018. TECHNIQUE: Noncontrast helical CT scanning of the chest was performed. Without IV contrast, the sensitivity to detect organ pathology is decreased. PQRS compliance Statement One or more of the following individualized dose reduction techniques were utilized for this study: 1. Automated exposure control 2. Adjustment of the mA and/or kV according to patient size 3. Use of iterative reconstruction technique FINDINGS: Calcified granulomatous lymph nodes are seen within the right hilum. No enlarging thoracic lymphadenopathy is evident. No focal aneurysmal dilatation of the thoracic aorta is seen. There is mild calcified atheromatous disease of the coronary arteries. The heart size is enlarged but no pericardial effusion is seen. No pleural effusion or pneumothorax is evident. Again seen is a 6 mm lung nodule within the posterior aspect the right lower lobe seen on series 8 and image 154. This is stable. On image 44, there is a small 3 mm lung nodule within the anterior aspect of the right apex. This is stable from April 08, 2018 and most likely is benign therefore. There is a new small infiltrate within the lateral aspect of the right lower lobe inferiorly extending the right lateral costophrenic angle. Pneumonia is possible. There is chronic elevation of the left hemidiaphragm with associated chronic atelectasis or scarring of the left lung base. There are calcifications present here consistent with old granulomatous disease. Bilateral air trapping is seen consistent with distal airway inflammatory or infectious disease. The proximal bronchial tree is patent otherwise. No adrenal mass is evident. No lytic process is seen. Old healed left rib cage fractures are seen best on the sagittal images. IMPRESSION: Stable 6 mm right lower lobe lung nodule since February 26, 2017 consistent with a benign finding. New lung infiltrate within the right lower lobe which could represent pneumonia. Mild calcified atheromatous disease of the coronary arteries. Cardiomegaly. Electronically signed by: Maximino Gentile MD (06/30/2019 4:01 PM) [facility]
== END | disposition home or self-care (01) ==
LOC: CT 08:43
PROVIDERS: ATTEND Internal Medicine Pulmonary Disease
DX: R91.8 Other nonspecific abnormal finding of lung field (principal); I51.7 Cardiomegaly; I25.10 Atherosclerotic heart disease of native coronary artery without angina pectoris; I89.8 Other specified noninfective disorders of lymphatic vessels and lymph nodes
CPT/HCPCS: 71250

== ENCOUNTER 2019-07-27 18:24 | Emergency (ER) | payer OTHER, MEDICARE ==
[~2019-07-27] VITALS: Ht 167.6 cm; Wt 69.9 kg
[~2019-07-27 18:24] MED LIST changes: +ACET500T68 PO; +BENZ-8 PO; +DOXY100C14 PO; +FAMO20TA5 PO; +LACT1CAP19 PO
--- NOTE | 2019-07-27 19:18 | PHYS DOC ---
Past Medical History Past Medical History: CAD, COPD, Diabetes-Type II, High Cholesterol, Hypertension, Hypothyroid Past Surgical History: Hysterectomy, Tonsillectomy, Other Additional Past Surgical Histo: eye surgery, sinus Alcohol Use: None Drug Use: None Adult General Chief Complaint Chief Complaint: SHORTNESS OF BREATH [facility] HPI 68-year-old female presents to the emergency Department complaints of shortness of breath. Patient's underlying history of hypertension, hypothyroidism, COPD, chronic respiratory failure, diabetes. She describes an admission on July 13 secondary to hypercapnic respiratory failure, she was placed on BiPAP at that time. She describes concern of the shortness of breath is a little worried about elevated CO2. She does describe a cough, denies any chest pain, nausea, vomiting, headache, visual change. Nothing makes her symptoms worse, nothing makes her symptoms better. Review of Systems Review of Systems Constitutional: Denies fever or chills [] Respiratory: Cough, shortness of breath Cardiovascular: No additional information not addressed in HPI [] GI: Denies abdominal pain, nausea, vomiting, bloody stools or diarrhea [] Musculoskeletal: Denies back pain or joint pain [] Integument: Denies rash or skin lesions [] Neurologic: Denies headache, focal weakness or sensory changes [] All other systems were reviewed and found to be within normal limits, except as documented in this note. Current Medications Current Medications Current Medications Medications (Trade) Dose Ordered Sig/Mo Start Time Stop Time Status Last Admin Dose Admin Albuterol/ Ipratropium (Duoneb) 3 ml 1X ONCE 07/27/19 19:30 07/27/19 19:31 DC 07/27/19 19:29 3 ML Allergies Allergies Allergies Coded Allergies Type Severity Reaction Last Updated Verified codeine Allergy Intermediate Nausea 08/23/13 Yes levofloxacin Allergy Intermediate 07/14/19 Yes simvastatin Allergy Intermediate 07/14/19 Yes theophylline Allergy Intermediate 08/05/16 Yes cephalexin Adverse Reaction Mild Diarrhea 08/05/16 Yes Physical Exam Physical Exam Constitutional: Well developed, well nourished, no acute distress, non-toxic appearance. [] HENT: Normocephalic, atraumatic, bilateral external ears normal, oropharynx moist, no oral exudates, nose normal. [] Eyes: PERRLA, EOMI, conjunctiva normal, no discharge. [] Cardiovascular:Heart rate regular rhythm, no murmur [] Lungs & Thorax: Bilateral breath sounds clear to auscultation [] Abdomen: Bowel sounds normal, soft, no tenderness, no masses, no pulsatile masses. [] Skin: Warm, dry, no erythema, no rash. [] Extremities: No tenderness, no edema. [] Neurologic: Alert and oriented X 3, no focal deficits noted. [] Psychologic: Affect normal, judgement normal, mood normal. [] Current Patient Data Vital Signs Vital Signs Date Time Temp Pulse Resp B/P (MAP) Pulse Ox O2 Delivery O2 Flow Rate FiO2 07/27/19 19:29 Nasal Cannula 3.0 07/27/19 18:36 98.8 74 20 146/78 (100) 97 98.8 Lab Values Laboratory Tests Test 07/27/19 19:00 White Blood Count 11.9 x10^3/uL (4.0-11.0) H Red Blood Count 4.41 x10^6/uL (3.50-5.40) Hemoglobin 13.4 g/dL (12.0-15.5) Hematocrit 41.2 % (36.0-47.0) Mean Corpuscular Volume 94 fL (79-100) Mean Corpuscular Hemoglobin 31 pg (25-35) Mean Corpuscular Hemoglobin Concent 33 g/dL (31-37) Red Cell Distribution Width 14.0 % (11.5-14.5) Platelet Count 278 x10^3/uL (140-400) Neutrophils (%) (Auto) 68 % (31-73) Lymphocytes (%) (Auto) 17 % (24-48) L Monocytes (%) (Auto) 13 % (0-9) H Eosinophils (%) (Auto) 2 % (0-3) Basophils (%) (Auto) 1 % (0-3) Neutrophils # (Auto) 8.1 x10^3/uL (1.8-7.7) H Lymphocytes # (Auto) 2.0 x10^3/uL (1.0-4.8) Monocytes # (Auto) 1.5 x10^3/uL (0.0-1.1) H Eosinophils # (Auto) 0.3 x10^3/uL (0.0-0.7) Basophils # (Auto) 0.1 x10^3/uL (0.0-0.2) Sodium Level 143 mmol/L (136-145) Potassium Level 4.2 mmol/L (3.5-5.1) Chloride Level 101 mmol/L (98-107) Carbon Dioxide Level > 45 mmol/L (21-32) H Anion Gap (6-14) Blood Urea Nitrogen 10 mg/dL (7-20) Creatinine 0.5 mg/dL (0.6-1.0) L Estimated GFR (Cockcroft-Gault) 123.4 BUN/Creatinine Ratio 20 (6-20) Glucose Level 109 mg/dL (70-99) H Calcium Level 9.1 mg/dL (8.5-10.1) Total Bilirubin 0.4 mg/dL (0.2-1.0) Aspartate Amino Transferase (AST) 9 U/L (15-37) L Alanine Aminotransferase (ALT) 17 U/L (14-59) Alkaline Phosphatase 64 U/L (46-116) EE-Vpr-B-Type Natriuretic Peptide 936 pg/mL (0-124) H Total Protein 6.2 g/dL (6.4-8.2) L Albumin 3.1 g/dL (3.4-5.0) L Albumin/Globulin Ratio 1.0 (1.0-1.7) Laboratory Tests 07/27/19 19:00 Laboratory Tests 07/27/19 19:00 EKG EKG EKG reviewed, interpretation time 1836, normal sinus rhythm, left axis deviation no evidence of ST elevation LA appreciated[] Radiology/Procedures Radiology/Procedures [] Course & Med Decision Making Course & Med Decision Making Pertinent Labs and Imaging studies reviewed. (See chart for details) []68-year-old female presents to the emergency Department complaints of shortness of breath. Patient's underlying history of hypertension, hypothyroidism, COPD, chronic respiratory failure, diabetes. She describes an admission on July 13 secondary to hypercapnic respiratory failure, she was placed on BiPAP at that time. She describes concern of the shortness of breath is a little worried about elevated CO2. She does describe a cough, denies any chest pain, nausea, vomiting, headache, visual change. Nothing makes her symptoms worse, nothing makes her symptoms better. BNP 936, metabolic profile unremarkable, white blood cell count 11.9 hemoglobin 13.4 X-ray reveals no evidence of acute cardiac pulmonary process no pulmonary edema. She is 92-97% the emergency department Chronic respiratory failure, home O2 in place Discussed findings with patient and family at bedside, no plans for admit at this time Return precautions provided Wells criteria for PE - low risk Dragon Disclaimer Joseon Disclaimer This electronic medical record was generated, in whole or in part, using a voice recognition dictation system. Departure Departure Impression: Primary Impression: COPD (chronic obstructive pulmonary disease) Additional Impressions: Hypertension Diabetes Disposition: 01 HOME, SELF-CARE Condition: IMPROVED Referrals: JERROD DAMIAN MD (PCP) Patient Instructions: Chronic Obstructive Pulmonary Disease Exacerbation, [id number] Additional Instructions: Recommend follow up with PCP 3 - 5 days Return to the ER with worsening symptoms, intractable pain, fever, altered mental status, shortness of breath Tylenol/Motrin as needed for pain CXR without acute process identified, no pneumonia/pulmonary edema Problem Qualifiers Primary Impression: COPD (chronic obstructive pulmonary disease) COPD type: unspecified COPD Qualified Codes: J44.9 - Chronic obstructive pulmonary disease, unspecified Additional Impressions: Hypertension Hypertension type: essential hypertension Qualified Codes: I10 - Essential (primary) hypertension Diabetes Diabetes mellitus type: type 2 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
[2019-07-27 19:25] LABS: BASO # 0.1 x10^3/uL (0.0-0.2); BASO % 1 % (0-3); EOS # 0.3 x10^3/uL (0.0-0.7); EOS % 2 % (0-3); HEMATOCRIT 41.2 % (36.0-47.0); HEMOGLOBIN 13.4 g/dL (12.0-15.5); LYMPH % 17 % (24-48); MEAN CORPUSCULAR HEMOGLOBIN 31 pg (25-35); MEAN CORPUSCULAR HGB CONC 33 g/dL (31-37); MEAN CORPUSCULAR VOLUME 94 fL (79-100); MONO # 1.5 x10^3/uL (0.0-1.1); MONO % 13 % (0-9); NEUT # 8.1 x10^3/uL (1.8-7.7); NEUT % 68 % (31-73); PLATELET COUNT 278 x10^3/uL (140-400); RED BLOOD COUNT 4.41 x10^6/uL (3.50-5.40); WHITE BLOOD COUNT 11.9 x10^3/uL (4.0-11.0)
[2019-07-27] MEDS ORDERED: IPRATRPIUM/ALBUTEROL 0.5/2.5MG 3 ML NEBU. NEB ONE (19:30)
[2019-07-27 19:34] LABS: BLOOD UREA NITROGEN 10 mg/dL (7-20); BUN/CREATININE RATIO 20 (6-20); CALCIUM 9.1 mg/dL (8.5-10.1); CHLORIDE 101 mmol/L (98-107); CREATININE 0.5 mg/dL (0.6-1.0); GFR 123.4; GLUCOSE 109 mg/dL (70-99); POTASSIUM 4.2 mmol/L (3.5-5.1); SODIUM 143 mmol/L (136-145)
[2019-07-27 19:39] LABS: ALBUMIN 3.1 g/dL (3.4-5.0); ALK PHOS 64 U/L (46-116); ALT (SGPT) 17 U/L (14-59); AST (SGOT) 9 U/L (15-37); TOTAL BILIRUBIN 0.4 mg/dL (0.2-1.0); TOTAL PROTEIN 6.2 g/dL (6.4-8.2)
[2019-07-27 19:43] LABS: CARBON DIOXIDE > 45 mmol/L (21-32)
--- NOTE | 2019-07-27 20:00 | RAD ---
PORTABLE CHEST 1V Clinical History: Technique: AP view of the chest was obtained at 07/27/2019 7:41 PM. Comparison: None. Findings: The cardiomediastinal silhouette is normal. The pulmonary vasculature is normal. The lungs and pleural margins are clear. Impression: No evidence of an acute cardiopulmonary process. Electronically signed by: Randal Davis III, MD (07/27/2019 7:57 PM) [facility]
[2019-07-27 20:45] VITALS: BP 115/67
--- NOTE | 2019-07-28 06:46 | EKG ---
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
== END 2019-07-27 20:50 | disposition home or self-care (01) ==
LOC: ER 18:24
DX: J44.9 Chronic obstructive pulmonary disease, unspecified (principal); I10 Essential (primary) hypertension; E11.69 Type 2 diabetes mellitus with other specified complication; E03.9 Hypothyroidism, unspecified; E78.00 Pure hypercholesterolemia, unspecified; I25.10 Atherosclerotic heart disease of native coronary artery without angina pectoris; Z90.710 Acquired absence of both cervix and uterus; Z90.89 Acquired absence of other organs; Z98.890 Other specified postprocedural states; Z88.5 Allergy status to narcotic agent; Z88.1 Allergy status to other antibiotic agents; Z88.8 Allergy status to other drugs, medicaments and biological substances
CPT/HCPCS: 36415; 71045; 80053; 83880; 85025; 93005; 94640; 99285; J7620

== ENCOUNTER → 2019-09-05 | Outpatient (CLI) | payer OTHER, MEDICARE ==
--- NOTE | 2019-09-07 11:37 | SLEEP ---
DATE OF STUDY: 09/06/2019 HOME SLEEP STUDY REFERRING PHYSICIAN: Jade Clemens MD The patient is a 69-year-old who weighs 169 pounds with a BMI of 27.3. The patient has history of chronic hypercapnic respiratory failure. The patient is on home oxygen at 2.5-3 liters. The patient had prior sleep study many years ago and there was no significant obstructive sleep apnea. Another home sleep study was performed. The patient was given instructions not to use oxygen during the recording. However, the patient ended up with using oxygen on the night of the recording. Total recording time was 501 minutes. During the night study, the patient had 37 obstructive apneas, no central or mixed apneas and 8 hypopneas. The patient's apnea hypopnea index was 5.4 per hour. Nocturnal oximetry study revealed an average oxygen saturation of 85% with the lowest of 78%. 154 minutes were spent in oxygen saturation less than 85% and 170 minutes with saturation of less than 90%, another 5 minutes with saturation less than 80%. Mean heart rate was 65 beats per minute. IMPRESSION: 1. Mild sleep apnea-hypopnea syndrome at an AHI of 5.4 per hour. The patient used oxygen between 2.5 to 3 liters on the night of the recording, which could underestimate the severity of sleep apnea. 2. Severe nocturnal hypoxia. The patient has history of chronic respiratory failure and is on home oxygen at 2.5 liters. The hypoxia was observed despite using same oxygen flow. RECOMMENDATIONS: 1. If the patient is clinically symptomatic, then the patient would benefit from treatment of sleep apnea with CPAP. 2. The patient would likely require higher oxygen flow while asleep. This can be determined during the night of the titration study. 3. Weight loss is advised. 4. Avoid SCREEN MAKER depressants. 5. Workup of hypoxia per the patient's referring physician. HEATHER LYNCH MD DR: ORALIA/laina JOB#: [id number] / [id number] JADE Love MD
== END | disposition home or self-care (01) ==
LOC: RT 09:44
PROVIDERS: ATTEND Internal Medicine Pulmonary Disease
DX: G47.33 Obstructive sleep apnea (adult) (pediatric) (principal); R09.02 Hypoxemia
CPT/HCPCS: G0399

== ENCOUNTER → 2019-09-19 | Outpatient (CLI) | payer OTHER, MEDICARE ==
--- NOTE | 2019-09-20 09:39 | SLEEP ---
DATE OF STUDY: 09/19/2019 SLEEP STUDY ATTENDING PHYSICIAN: Derek Garcia MD REFERRING PHYSICIAN: Jade Clemens MD The patient is 69-year-old who weighs 164 pounds with a BMI of 26. The patient has chronic respiratory failure and uses oxygen at 2.5 liters. She had a home sleep study on 09/06/2019, which showed mild KATHY. The patient did use oxygen on the night of study, which could have underestimated the severity of sleep apnea. She was referred back for CPAP titration study. During the night study, the patient spent 439 minutes in bed and slept for 397 minutes with a sleep efficiency of 90%. Sleep latency was 20 minutes with a REM latency of 374 minutes. Sleep architecture showed normal stage 1 sleep, reduced stage 2 sleep, increased slow wave sleep, which was 51% total sleep time and reduced REM sleep, which was 11% total sleep time. EKG monitoring revealed sinus rhythm with an average heart rate of 67 beats per minute. However, PVCs were seen throughout the night. No sustained arrhythmias observed. No PLMS seen. The patient was started on CPAP at a pressure of 7 cm water and titrated up to 18 cm water. Due to persistent respiratory events, the patient was switched to BiPAP at a pressure of 20/16. At that pressure, the patient slept for 80 minutes. The patient had lateral sleep. The patient did not slept supine. The patient had long REM period at the final pressure. The patient's AHI was reduced to 1 per hour; however, oxygen saturations remained in the low 70s-80s. The patient did not use supplemental oxygen. The patient used small size full face mask. IMPRESSION: 1. Sleep apnea diagnosed by previous sleep study. 2. No clinically significant periodic limb movements. 3. Abnormal EKG with premature ventricular contractions seen throughout the night of the study. RECOMMENDATIONS: 1. BiPAP at a pressure of 20/16 with 3 liters of supplemental oxygen should be used on a nightly basis. 2. Follow up in 4-6 weeks to assess compliance and to document clinical improvement. 3. 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 4. Cautioned regarding driving until symptoms of sleep apnea resolve with above recommendation. 5. Follow up with Cardiology regarding abnormal EKG if clinically indicated. HEATHER LYNCH MD DR: ORALIA/laina JOB#: [id number] / [id number] JADE Love MD, STEPHEN MD [facility] SYSTEMVaibhav
== END | disposition home or self-care (01) ==
LOC: RT 19:58
PROVIDERS: ATTEND Internal Medicine Pulmonary Disease
DX: G47.33 Obstructive sleep apnea (adult) (pediatric) (principal)
CPT/HCPCS: 95811

== ENCOUNTER 2019-09-24 05:12 | Emergency (ER) | payer OTHER, MEDICARE ==
[~2019-09-24] VITALS: Ht 167.6 cm; Wt 74.5 kg
--- NOTE | 2019-09-24 05:41 | PHYS DOC ---
Past Medical History Past Medical History: CAD, COPD, Diabetes-Type II, High Cholesterol, Hype rtension, Hypothyroid Past Surgical History: Hysterectomy, Tonsillectomy, Other Additional Past Surgical Histo: eye surgery, sinus Smoking Status: Former Smoker Alcohol Use: None Drug Use: None Adult General Chief Complaint Chief Complaint: SHORTNESS OF BREATH [facility] HPI Patient is a 69 year old female who presents from home with report that her oxygen saturation meter was reading as low as 47%. Patient became concerned and called her primary care doctor who said that if she wasn't feeling well that she should come in. Patient states that she was feeling fine but it was scaring her seeing her oxygen level at 47%. She denies any chest pain or shortness of breath. She does indicate that she is on 2 L of oxygen at home.[] Review of Systems Review of Systems Constitutional: Denies fever or chills [] Respiratory: Denies cough or shortness of breath [] Cardiovascular: No additional information not addressed in HPI [] GI: Denies abdominal pain, nausea, vomiting or diarrhea [] Integument: Denies rash or skin lesions [] Neurologic: Denies headache, focal weakness or sensory changes [] Allergies Allergies Allergies Coded Allergies Type Severity Reaction Last Updated Verified codeine Allergy Intermediate Nausea 08/23/13 Yes levofloxacin Allergy Intermediate 07/14/19 Yes simvastatin Allergy Intermediate 07/14/19 Yes theophylline Allergy Intermediate 08/05/16 Yes cephalexin Adverse Reaction Mild Diarrhea 08/05/16 Yes Physical Exam Physical Exam Constitutional: Well developed, well nourished, no acute distress, non-toxic appearance. [] Cardiovascular: Regular rate and rhythm[] Lungs & Thorax: Bilateral breath sounds clear to auscultation [] Abdomen: Bowel sounds normal, soft, no tenderness. [] Skin: Warm, dry, no erythema, no rash. [] Extremities: No tenderness, no cyanosis, no clubbing, ROM intact. [] Neurologic: Alert and oriented X 3, no focal deficits noted. [] EKG EKG [] Radiology/Procedures Radiology/Procedures [] Course & Med Decision Making Course & Med Decision Making Pertinent Labs and Imaging studies reviewed. (See chart for details) Patient moved to room upon arrival was evaluated by ER medical staff and patient placed on monitor. Patient's oxygen level noted to be 95-96% on her normal 2 L. I did offer to obtain blood work and chest x-ray on patient. Patient states that she would just prefer to be discharged home now that she knows that her oxygen level is normal. Dragon Disclaimer Dragon Disclaimer This electronic medical record was generated, in whole or in part, using a voice recognition dictation system. Departure Departure Impression: Primary Impression: COPD (chronic obstructive pulmonary disease) Disposition: HOME, SELF-CARE Condition: STABLE Referrals: JERROD DAMIAN MD (PCP) Patient Instructions: Chronic Obstructive Pulmonary Disease Problem Qualifiers Primary Impression: COPD (chronic obstructive pulmonary disease) COPD type: unspecified COPD Qualified Codes: J44.9 - Chronic obstructive pulmonary disease, unspecified JULIA GRANADOS Jr. DO Sep 24, 2019 05:41
[2019-09-24 06:22] VITALS: BP 114/67
== END 2019-09-24 06:05 | disposition home or self-care (01) ==
LOC: ER 05:12
DX: J44.9 Chronic obstructive pulmonary disease, unspecified (principal); E11.9 Type 2 diabetes mellitus without complications; I10 Essential (primary) hypertension; E78.00 Pure hypercholesterolemia, unspecified; E03.9 Hypothyroidism, unspecified; I25.10 Atherosclerotic heart disease of native coronary artery without angina pectoris; Z87.891 Personal history of nicotine dependence; Z90.710 Acquired absence of both cervix and uterus; Z88.1 Allergy status to other antibiotic agents; Z88.5 Allergy status to narcotic agent; Z88.8 Allergy status to other drugs, medicaments and biological substances
CPT/HCPCS: 99281

== ENCOUNTER → 2020-10-02 | Outpatient (CLI) | payer OTHER ==
--- NOTE | 2020-10-02 13:39 | KCIC ---
CT of the chest without contrast 10/02/2020 INDICATION: Lung nodule, prior smoker. COMPARISON STUDY: CT chest without contrast June 30, 2019 CT chest February 26, 2017 CT chest October 252012 Technique multidetector CT imaging of the chest was performed without the administration of IV contra st FINDINGS: There is mild cardiomegaly. Coronary calcification noted. No pericardial effusion is seen. No pathologically enlarged mediastinal lymph nodes are noted. There is no pneumothorax, or pleural ef fusion. Moderate centrilobular emphysema noted. There is a 5 to 6 mm noncalcified nodule in the right lower lobe unchanged from comparison exam. Nodule is stable going back to exam dated November 14, 2012. Linear opacity in the basilar right lower lobe consistent with scarring is also similar. Partially visualized upper abdomen demonstrates no acute abnormality. No acute osseous changes are identified. IMPRESSION: 1. 6 mm noncalcified nodule in the right lower lobe, stable since October 2012. Findings are consiste nt with a benign nodule. 2.Centrilobular emphysema CT DOSING PQRS STATEMENT: One or more of the following individualized dose reduction techniques were utilized for this examinat ion: 1. Automated exposure control 2. Adjustment of the mA and/or kV according to patient size 3. Use of iterative reconstruction technique Electronically signed by: Servando Mcelroy MD (10/02/2020 1:37 PM) [id number]
== END ==
LOC: KCIC CT 12:53
PROVIDERS: ATTEND Internal Medicine Pulmonary Disease
DX: J43.2 Centrilobular emphysema (principal); R91.1 Solitary pulmonary nodule; I25.10 Atherosclerotic heart disease of native coronary artery without angina pectoris; I51.7 Cardiomegaly; Z87.891 Personal history of nicotine dependence
CPT/HCPCS: 71250

== ENCOUNTER → 2021-02-24 | Outpatient (CLI) | payer OTHER ==
[~2021-02-24] MED LIST changes: +DOXY-181 PO; -DOXY100C14 PO
--- NOTE | 2021-02-24 16:28 | RAD ---
EXAM: Chest, 2 views. HISTORY: Shortness of breath. COMPARISON: 07/27/2019 FINDINGS: 2 views of the chest are obtained. There is stable coarse diffuse increased interstitial op acity. There is stable elevation of the left hemidiaphragm. There is a stable enlarged cardiac silhou ette. There is no consolidation, protrusion or pneumothorax. IMPRESSION: Stable chronic appearing interstitial changes and cardiomegaly. Electronically signed by: Rashmi Mccullough MD (02/24/2021 4:25 PM) [id number]
== END ==
LOC: RAD 15:26
PROVIDERS: ATTEND Internal Medicine Cardiovascular Disease
DX: R06.02 Shortness of breath (principal)
CPT/HCPCS: 71046

== ENCOUNTER → 2021-04-10 | Outpatient (CLI) | payer OTHER ==
--- NOTE | 2021-04-10 16:40 | CARD ---
MR#: [id number] Date of Study: 04/10/2021 Ordering Physician: LINDSEY BROWN, Referring Physician: LINDSEY BROWN, Tech: Randal Little [facility] APPROVED REPORT EXAM: Two-dimensional and M-mode echocardiogram with Doppler and color Doppler. Other Information Quality : AverageHR: 107bpm Rhythm : NSR INDICATION Dyspnea Cardiac Disease: CAD 2D DIMENSIONS Left Atrium(2D)3.7 (1.6-4.0cm)IVSd1.0 (0.7-1.1cm) Aortic Root(2D)3.4 (2.0-3.7cm)LVDd5.7 (3.9-5.9cm) LVOT Diameter2.2 (1.8-2.4cm)PWd1.0 (0.7-1.1cm) LVDs4.4 (2.5-4.0cm)FS (%) 22.6 % SV70.4 mlLVEF(%)44.8 (>50%) Aortic Valve AoV Peak Harlan.201.7cm/sAoV VTI35.7cm AO Peak GR.16.3mmHgLVOT Peak Harlan.80.8cm/s AO Mean GR.9mmHgAVA (VMAX)1.49cm2 Mitral Valve MV E Fkgdqlld91.4cm/sMV E Peak Gr.11mmHg MV DECEL [id number] A Flsbhddk938.4cm/s MV E Mean Gr.4mmHgE/A Ratio0.6 Pulmonary Valve PV Peak Dqzwqrgy907.5cm/s Tricuspid Valve TR P. Umwdwcnw301ox/sTR Peak Gr.26mmHg Pulmonary Vein S1 Hgwrrfis03.9cm/sD2 Untvidxy30.6cm/s LEFT VENTRICLE The left ventricle is normal size. There is normal left ventricular wall thickness. The systolic func tion is mildly impaired. The Ejection Fraction is 40-45%. Septal motion suggestive of conduction defe ct. There is mild global hypokinesis. Tissue Doppler imaging reveals moderate left ventricular diasto lic dysfunction. No left ventricle thrombus noted on this study. There is no ventricular septal defec t visualized. There is no left ventricular aneurysm. There is no mass noted in the left ventricle. RIGHT VENTRICLE The right ventricle is normal size. There is normal right ventricular wall thickness. The right ventr icular systolic function is normal. ATRIA The left atrium size is normal. The right atrium size is normal. The interatrial septum is intact wit h no evidence for an atrial septal defect or patent foramen ovale as noted on 2-D or Doppler imaging. AORTIC VALVE The aortic valve is mildly sclerotic. The aortic valve is calcified but opens well. Doppler and Color Flow revealed no significant aortic regurgitation. There is no significant aortic valvular stenosis. There is no aortic valvular vegetation. MITRAL VALVE The mitral valve is normal in structure and function. There is no evidence of mitral valve prolapse. There is no mitral valve stenosis. Doppler and Color-flow revealed trace mitral regurgitation. TRICUSPID VALVE The tricuspid valve is normal in structure and function. Doppler and Color Flow revealed trace tricus pid regurgitation. There is no tricuspid valve prolapse or vegetation. There is no tricuspid valve st enosis. PULMONIC VALVE Doppler and Color Flow revealed no pulmonic valvular regurgitation. There is no pulmonic valvular leanne nosis. GREAT VESSELS The aortic root is normal in size. The ascending aorta is normal in size. The IVC is normal in size a nd collapses >50% with inspiration. PERICARDIAL EFFUSION There is no pleural effusion. There is no evidence of significant pericardial effusion. Critical Notification Critical Value: No <Conclusion> The systolic function is mildly impaired. The Ejection Fraction is 40-45%. Septal motion suggestive of conduction defect. There is mild global hypokinesis. Signed by : Angel Osorio, Electronically Approved : 04/10/2021 16:39:44
== END ==
LOC: ECHO 14:04
PROVIDERS: ATTEND Internal Medicine Cardiovascular Disease
DX: I06.8 Other rheumatic aortic valve diseases (principal); R06.02 Shortness of breath
CPT/HCPCS: 93306

== ENCOUNTER → 2021-09-29 | Outpatient (CLI) | payer OTHER ==
[~2021-09-29] MED LIST changes: +TIZA-75 PO; -TIZA4TAB2 PO
--- NOTE | 2021-09-29 13:49 | KCIC ---
PQRS Compliance Statement: One or more of the following individualized dose reduction techniques were utilized for this examinat ion: 1. Automated exposure control 2. Adjustment of the mA and/or kV according to patient size 3. Use of iterative reconstruction technique CT THORAX WO Clinical Indication: Reason: Lung nodule, emphysema, past smoker. Comparison: CT chest without contrast, October 02, 2020. TECHNIQUE: Helical CT imaging of the chest is performed without IV contrast. Findings: Calcified right hilar lymph nodes. No mediastinal adenopathy is seen. Pulmonary trunk diameter is inc reased measuring 3.9 cm. There is aortic annular calcification. There is cardiac enlargement, unchang ed. No pericardial effusion. There is no pleural effusion. Central airways are patent. There is mild upper lobe centrilobular emph ysema. Right upper lobe calcified granuloma. Mild scarring or atelectasis in the bilateral lung bases just above the diaphragm. Stable 6 mm noncalcified nodule in the right lower lobe. There is a new spiculated nodule in the superior segment of the left lower lobe measuring approximate ly 1.8 x 1.9 x 1.3 cm. The visualized upper abdomen is unremarkable. Thoracic spine alignment is maintained. IMPRESSION: 1. There is a new spiculated nodule in the superior segment of the left lower lobe that is suspiciou s for malignancy. Consider further evaluation with FDG PET/CT. 2. Pulmonary trunk is dilated suggesting pulmonary arterial hypertension. 3. There is moderate cardiomegaly. 4. Mild upper lobe centrilobular emphysema. Electronically signed by: Maik Walton MD (09/29/2021 1:46 PM) [id number]
== END ==
LOC: KCIC CT 12:50
PROVIDERS: ATTEND Internal Medicine Pulmonary Disease
DX: R91.1 Solitary pulmonary nodule (principal); I51.7 Cardiomegaly; J43.2 Centrilobular emphysema; Z87.891 Personal history of nicotine dependence
CPT/HCPCS: 71250

== ENCOUNTER → 2021-12-23 | Outpatient (CLI) | payer OTHER ==
--- NOTE | 2021-12-23 13:49 | KCIC ---
CT THORAX WO History: Nodule. Emphysema. History of Covid. Smoker. Technique: Noncontrast CT of the chest was performed. Coronal and sagittal reconstructions were perfo rmed. Exposure: One or more of the following individualized dose reduction techniques were utilized for thi s examination: 1. Automated exposure control 2. Adjustment of the mA and/or kV according to patient size 3. Use of iterative reconstruction technique. Comparison: September 29, 2021. June 30, 2019 Findings: Chest: Small mediastinal lymph nodes, unchanged. Dilated pulmonary artery measures 3.7 cm, unchanged. Coronary artery calcifications. Cardiomegaly, unchanged. No consolidation or pleural effusion. No pn eumothorax. Centrilobular ylmk-ku-dwmrgvgu emphysema. Conus of the left hemidiaphragm with adjacent l ingula and left lower lobe atelectasis. Mild right lower lobe linear atelectasis. 5 mm right lower lobe pulmonary nodule (series 2 image 31), unchanged compared to 2019 and likely gunjan ign given stability over time. Resolved previously seen left upper lobe superior segment nodular opac ity. Upper abdomen: The imaged upper abdomen is unremarkable. Bones: No pathologic osseous lesions. Impression: 1. Resolved previously seen left lower lobe nodular opacity. 2. Pulmonary emphysema. Electronically signed by: Ariel Olivo DO (12/23/2021 1:47 PM) [facility]
== END ==
LOC: KCIC CT 08:50
PROVIDERS: ATTEND Internal Medicine Pulmonary Disease
DX: J43.9 Emphysema, unspecified (principal); I25.10 Atherosclerotic heart disease of native coronary artery without angina pectoris; I51.7 Cardiomegaly; I28.1 Aneurysm of pulmonary artery; J98.11 Atelectasis; R91.1 Solitary pulmonary nodule; Z98.891 History of uterine scar from previous surgery
CPT/HCPCS: 71250